=== PATIENT | male | born 1965 | race African-American/Black ===

== ENCOUNTER → 2017-05-01 | Outpatient (CLI) | payer SELFPAY ==
--- NOTE | 2017-05-01 11:36 | Diagnostic Imaging Report ---
INDICATION: Fullness in the left flank region inferior to the scapula as well as numbness in the left arm. Sonographic interrogation of fullness in the left flank was performed. The degree of soft tissue fullness on the left flank is increased when compared with the asymptomatic right flank. However, no discrete fluid collection or hematoma is detected. IMPRESSION: There is some soft tissue fullness in the area of left flank, indeterminate. No fluid collection is seen. Additional evaluation is recommended with CT for better characterization. Dictated by: Dictated on workstation # [id number]
== END ==
LOC: RAD 10:23
PROVIDERS: ATTEND Nurse Practitioner Community Health
DX: R10.9 Unspecified abdominal pain (principal); R20.0 Anesthesia of skin
CPT/HCPCS: 76999

== ENCOUNTER → 2017-05-04 | Outpatient (CLI) | payer SELFPAY ==
[~2017-05-04] MED LIST: IOHEXOL 350 MG/ML 100 ML (OMNIPAQUE 350) VIAL IV ONE; NS 250 ML (IVPB) BAG IV ONE
--- NOTE | 2017-05-04 13:15 | Diagnostic Imaging Report ---
PROCEDURE: CT chest with contrast only. TECHNIQUE: Multiple contiguous axial images were obtained through the chest after administration of intravenous contrast. INDICATION: Fatty lump on the posterolateral aspect of the left chest wall. COMPARISON: Left chest wall ultrasound from 05/01/17. FINDINGS: Lungs and airway: No endoluminal nodule in the trachea. No pulmonary mass or consolidation. Incidental note of a 6 mm elongated nodule along the right minor fissure (image 35, series 2). Pleura: No pleural effusion or pneumothorax. Heart and mediastinum: Visualized thyroid is normal. No supraclavicular or axillary lymphadenopathy. No mediastinal, hilar or juxtaphrenic lymphadenopathy. The heart is normal in size. No pericardial effusion. Normal-caliber thoracic aorta. Upper abdomen: Visualized aspects of the upper abdomen are normal. Musculoskeletal: There is a large fatty mass in the posterolateral aspect of left chest wall which is located deep to the inferior aspect of the anterior serratus muscle and the left latissimus dorsi muscle. The deep margins of the mass conform to the lower lateral ribs. There is no invasion of the ribs or the chest wall. The mass has maximal dimensions of 9.1 x 3.0 x 6.9 cm. No concerning osseous abnormality. IMPRESSION: 1. 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 No soft tissue components to suggest lipoid sarcoma. 2. Incidental note of a 6 mm right middle lobe pulmonary nodule that has imaging features that would favor intrapulmonary lymph node. If patient has no risk factors for smoking, particularly smoking, then no additional followup imaging is required. If patient has risk factors for lung cancer, then a followup CT chest in 12 months is recommended. 3. No intrathoracic lymphadenopathy. Dictated by: Dictated on workstation # [id number]
== END ==
LOC: RAD 12:06
PROVIDERS: ATTEND Nurse Practitioner Community Health
DX: R22.2 Localized swelling, mass and lump, trunk (principal); R91.1 Solitary pulmonary nodule
CPT/HCPCS: 71260

== ENCOUNTER → 2017-05-29 | Outpatient (CLI) | payer SELFPAY ==
--- NOTE | 2017-05-29 13:25 | Diagnostic Imaging Report ---
PROCEDURE: MR imaging cervical spine without contrast. TECHNIQUE: Multiplanar, multisequence MR imaging of the cervical spine was performed without contrast. INDICATION: Neck pain, arm numbness. COMPARISON: No priors. FINDINGS: There is straightening of cervical curvature but no listhesis. Cervical vertebral body heights are maintained and the marrow signal intensity was unremarkable. The cervical spinal cord itself had a normal volume, normal morphology, and normal signal intensity. There is no paravertebral mass, hemorrhage, or fluid collection. The craniocervical relationship, and the C1-C2 level and disc appeared normal. C2-C3: Very slight disc desiccation and slight eccentric bulging posteriorly towards the left minimally effaces the ventral thecal sac but is not felt to result in substantial canal stenosis and the neuroforamina showed no significant narrowing. C3-C4: Osteophyte disc material posteriorly flattens and effaces the ventral thecal sac. There is a sliver of CSF dorsal and ventral to the cord. The midline AP canal diameter is narrowed to measure 7.4 mm. There is a moderate degree of stenosis. Uncovertebral joint spurring and disc material is asymmetric to the left at this level and results in moderate severity of left neuroforaminal stenosis. C4-C5: Osteophyte disc material posteriorly flattens and effaces the ventral thecal sac with a mild degree of spinal canal stenosis. The disc material, the endplate osteophytes, and uncovertebral joint spurring at this level are also asymmetric, greater left than right, with an at least moderate degree of left foraminal narrowing. The right neuroforamen is only mildly stenosed. C5-C6: Posterolateral focal disc protrusion results in a sknrtdmn-mf-umfhli degree of left foraminal stenosis. There is only mild effacement of the ventral thecal sac. No substantial degree of canal narrowing. The right neuroforamen is widely patent. C6-C7: Osteophyte disc material posteriorly effaces and flattens the ventral thecal sac with mild canal stenosis and mild degrees of symmetrical biforaminal narrowing. C7-T1: There is mild asymmetric disc bulge to the left mildly narrowing the left neuroforamen. The right foramen and the spinal canal showed no significant encroachment. The T2-T3 and T3-T4 discs and the sagittal views suggest mild bulging with likely mild biforaminal and mild canal stenosis. These are below the kvnab-kw-lrcv for the axial sequences. IMPRESSION: 1. Multilevel cervical and upper thoracic spondylosis, facet arthrosis, and uncovertebral joint spurring. Osteophyte disc material and endplate hypertrophy is asymmetric, greater left than right, resulting in multilevel substantial degrees of left foraminal stenosis with cyrh-ih-oyvtqgiv multilevel canal stenoses. 2. There was normal alignment. There is no acute osseous pathology and the patient's spinal cord appeared normal. Dictated by: Dictated on workstation # [id number]
== END ==
LOC: RAD 11:46
PROVIDERS: ATTEND Nurse Practitioner
DX: M48.03 Spinal stenosis, cervicothoracic region (principal); S13.101A Dislocation of unspecified cervical vertebrae, initial encounter; M47.812 Spondylosis without myelopathy or radiculopathy, cervical region; M47.814 Spondylosis without myelopathy or radiculopathy, thoracic region
CPT/HCPCS: 72141

== ENCOUNTER 2017-09-09 14:10 | Emergency (ER) | payer SELFPAY ==
[~2017-09-09] VITALS: Ht 180.3 cm; Wt 80.3 kg
[2017-09-09] MEDS ORDERED: ASPIRIN 81 MG CHEW (CHILDREN'S ASA) PO ONE (14:30)
[2017-09-09 14:31] LABS: BASOPHILS % (AUTO) 0 % (0-10); EOSINOPHILS % (AUTO) 0 % (0-10); HEMATOCRIT 43 % (40-54); HEMOGLOBIN 15.5 G/DL (13.3-17.7); LYMPHOCYTES # (AUTO) 1.6 X 10^3 (1.0-4.0); LYMPHOCYTES % (AUTO) 20 % (12-44); MEAN CORPUSCULAR HEMOGLOBIN 31 PG (25-34); MEAN CORPUSCULAR HGB CONC 36 G/DL (32-36); MEAN CORPUSCULAR VOLUME 87 FL (80-99); MEAN PLATELET VOLUME 11.3 FL (7.4-10.4); MONOCYTES # (AUTO) 1.1 X 10^3 (0.0-1.0); MONOCYTES % (AUTO) 14 % (0-12); NEUTROPHILS # (AUTO) 5.2 X 10^3 (1.8-7.8); NEUTROPHILS % (AUTO) 66 % (42-75); PLATELET COUNT 239 10^3/uL (130-400); RED BLOOD COUNT 5.02 10^6/uL (4.35-5.85); RED CELL DISTRIBUTION WIDTH 13.1 % (10.0-14.5); WHITE BLOOD COUNT 7.8 10^3/uL (4.3-11.0)
[2017-09-09 14:43] LABS: INR 1.1 (0.8-1.4); PROTHROMBIN TIME PATIENT 14.1 SEC (12.2-14.7)
--- NOTE | 2017-09-09 14:47 | Diagnostic Imaging Report ---
INDICATION: Chest pain. COMPARISON: None. FINDINGS: Single view of the chest demonstrates clear lungs bilaterally. The heart is normal. There is no pneumothorax. Osseous structures normal. IMPRESSION: Negative chest. Dictated by: Dictated on workstation # [id number]
[2017-09-09 14:50] LABS: ALANINE AMINOTRANSFERASE 24 U/L (0-55); ALBUMIN 3.8 GM/DL (3.2-4.5); ALKALINE PHOSPHATASE 112 U/L (40-136); BILIRUBIN,TOTAL 0.7 MG/DL (0.1-1.0); BUN/CREATININE RATIO 23; CALCIUM 10.2 MG/DL (8.5-10.1); CARBON DIOXIDE 17 MMOL/L (21-32); CHLORIDE 111 MMOL/L (98-107); CREATININE SERUM 1.02 MG/DL (0.60-1.30); GFR ESTIMATED > 60; GLUCOSE 88 MG/DL (70-105); LIPASE 20 U/L (8-78); MAGNESIUM 1.7 MG/DL (1.8-2.4); POTASSIUM 4.3 MMOL/L (3.6-5.0); SODIUM 143 MMOL/L (135-145); TOTAL PROTEIN 6.8 GM/DL (6.4-8.2)
--- NOTE | 2017-09-09 15:00 | ED Chest Pain ---
General Chief Complaint: Chest Pain Stated Complaint: CHEST PAIN, WEAK, KIDNEY PROBLEMS,SOB Nursing Triage Note: TO ROOM C/O CHEST PAIN SINCE YESTERDAY WAS SEEN AT THE [facility]ICAL [facility] YESTERDAY FOR. Nursing Sepsis Screen: No Definite Risk Source: patient Exam Limitations: no limitations (MÓNICA SANZ MD) History of Present Illness Date Seen by Provider: Sep 09, 2017 Time Seen by Provider: 14:20 Initial Comments Here with report of chest pain since yesterday. He was seen at his primary health clinic yesterday for the same. The do not prescribe anything for pain. Also notes that he has swelling in his throat that is not sure about. Has had recent workup with MRI and CT scan. MRI was of the C-spine and CT scans of the chest. 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 Reports that his hands weight loss over the last several weeks that may approached 20 pounds. Overall not feeling well. Denies throat pain but does feel the fullness. This seems to be waxing and waning. Denies nausea or vomiting. Timing/Duration: changing over time, 1 day Severity/Quality: moderate, aching Location: central Radiation: no radiation Prior CP/Workup: no prior cardiac workup ASA po MASTER PRINTER: No NTG SL MASTER PRINTER: No Associated Symptoms: No abdominal pain, No back pain; fatigue; No fever/chills , No nausea/vomiting, No shortness of breath; weakness (MÓNICA SANZ MD) Allergies and Home Medications Allergies Coded Allergies: No Known Drug Allergies (Unverified , 09/09/17) Home Medications No Active Prescriptions or Reported Meds Patient Home Medication List Home Medication List Reviewed: Yes (MÓNICA SANZ MD) Home Medication List Reviewed: Yes (GWEN WHALEY) Review of Systems Constitutional: see HPI, weakness EENTM: See HPI; No Mouth Pain, No Mouth Swelling, No Nose Congestion, No Throat Pain; Throat Swelling Respiratory: Denies Cough, Denies SOA at Rest Cardiovascular: Chest Pain; Denies Irregular Heart Rate, Denies Palpitations Gastrointestinal: No Symptoms Reported Genitourinary: No Symptoms Reported Musculoskeletal: see HPI, back pain, muscle pain, neck pain Skin: no symptoms reported Psychiatric/Neurological: See HPI, Weakness Endocrine: No Symptoms Reported (MÓNICA SANZ MD) All Other Systems Reviewed Negative Unless Noted: Yes (MÓNICA SANZ MD) Past Sdtvgqo-Lnerog-Ezlkwt Hx Past Med/Social Hx: Reviewed Nursing Past Med/Soc Hx (MÓNICA SANZ MD) Patient Social History Alcohol Use: Denies Use Recreational Drug Use: No Smoking Status: Current Everyday Smoker Recent Foreign Travel: No Contact w/Someone Who Travel: No Recent Infectious Disease Expo: No (MÓNICA SANZ MD) Past Medical History Surgeries: No Respiratory: No Cardiac: Yes Hypertension Neurological: No Genitourinary: No Gastrointestinal: No Musculoskeletal: No Endocrine: No HEENT: No Integumentary: No (MÓNICA SANZ MD) Family Medical History Reviewed Nursing Family Hx (MÓNICA SANZ MD) Physical Exam Vital Signs Vital Signs - First Documented 09/09/17 14:30 Temp 98.0 Pulse 112 Resp 18 B/P (MAP) 148/96 (113) Pulse Ox 98 O2 Delivery Room Air (GWEN WHALEY) Vital Signs Capillary Refill : Less Than 3 Seconds (MÓNICA SANZ MD) General Appearance: No Apparent Distress, WD/WN HEENT: PERRL/EOMI, Pharyngeal Erythema; No Tonsillar Exudate; Tonsillar Enlargement Neck: Full Range of Motion, Lymphadenopathy (L), Lymphadenopathy (R) Respiratory: Lungs Clear, Normal Breath Sounds Cardiovascular: No Murmur, Tachycardia Gastrointestinal: Non Tender, Soft Extremity: Normal Range of Motion, Non Tender Neurologic/Psychiatric: Alert, Oriented x3 Skin: Normal Color, Warm/Dry (MÓNICA SANZ MD) Progress/Results/Core Measures Results/Orders Lab Results Laboratory Tests Test 09/09/17 14:24 09/09/17 14:48 09/09/17 17:55 Range/Units White Blood Count 7.8 4.3-11.0 10^3/uL Red Blood Count 5.02 4.35-5.85 10^6/uL Hemoglobin 15.5 13.3-17.7 G/DL Hematocrit 43 40-54 % Mean Corpuscular Volume 87 80-99 FL Mean Corpuscular Hemoglobin 31 25-34 PG Mean Corpuscular Hemoglobin Concent 36 32-36 G/DL Red Cell Distribution Width 13.1 10.0-14.5 % Platelet Count 239 130-400 10^3/uL Mean Platelet Volume 11.3 H 7.4-10.4 FL Neutrophils (%) (Auto) 66 42-75 % Lymphocytes (%) (Auto) 20 12-44 % Monocytes (%) (Auto) 14 H 0-12 % Eosinophils (%) (Auto) 0 0-10 % Basophils (%) (Auto) 0 0-10 % Neutrophils # (Auto) 5.2 1.8-7.8 X 10^3 Lymphocytes # (Auto) 1.6 1.0-4.0 X 10^3 Monocytes # (Auto) 1.1 H 0.0-1.0 X 10^3 Eosinophils # (Auto) 0.0 0.0-0.3 10^3/uL Basophils # (Auto) 0.0 0.0-0.1 10^3/uL Prothrombin Time 14.1 12.2-14.7 SEC INR Comment 1.1 0.8-1.4 Activated Partial Thromboplast Time 35 24-35 SEC D-Dimer 0.55 H 0.00-0.49 UG/ML Sodium Level 143 135-145 MMOL/L Potassium Level 4.3 3.6-5.0 MMOL/L Chloride Level 111 H 98-107 MMOL/L Carbon Dioxide Level 17 L 21-32 MMOL/L Anion Gap 15 H 5-14 MMOL/L Blood Urea Nitrogen 23 H 7-18 MG/DL Creatinine 1.02 0.60-1.30 MG/DL Estimat Glomerular Filtration Rate > 60 BUN/Creatinine Ratio 23 Glucose Level 88 70-105 MG/DL Calcium Level 10.2 H 8.5-10.1 MG/DL Magnesium Level 1.7 L 1.8-2.4 MG/DL Total Bilirubin 0.7 0.1-1.0 MG/DL Aspartate Amino Transf (AST/SGOT) 28 5-34 U/L Alanine Aminotransferase (ALT/SGPT) 24 0-55 U/L Alkaline Phosphatase 112 40-136 U/L Total Creatine Kinase 65 30-200 U/L Myoglobin 74.0 10.0-92.0 NG/ML Troponin I < 0.30 <0.30 NG/ML Total Protein 6.8 6.4-8.2 GM/DL Albumin 3.8 3.2-4.5 GM/DL Lipase 20 8-78 U/L Monoscreen NEGATIVE NEGATIVE Group A Streptococcus Screen NEGATIVE NEGATIVE Urine Color YELLOW Urine Clarity CLEAR Urine pH 5 5-9 Urine Specific Purcell 1.010 L 1.016-1.022 Urine Protein 1+ H NEGATIVE Urine Glucose (UA) NEGATIVE NEGATIVE Urine Ketones 2+ H NEGATIVE Urine Nitrite NEGATIVE NEGATIVE Urine Bilirubin NEGATIVE NEGATIVE Urine Urobilinogen 4 H NORMAL MG/DL Urine Leukocyte Esterase NEGATIVE NEGATIVE Urine RBC (Auto) 2+ H NEGATIVE Urine RBC 0-2 /HPF Urine WBC 0-2 /HPF Urine Squamous Epithelial Cells 2-5 /HPF Urine Renal Epithelial Cells NONE /HPF Urine Crystals NONE /LPF Urine Bacteria NEGATIVE /HPF Urine Casts PRESENT /LPF Urine Hyaline Casts 0-2 H /LPF Urine White Blood Cell Casts RARE H /LPF Urine Mucus NEGATIVE /LPF Urine Culture Indicated NO (GWEN WHALEY) My Orders Orders - GWEN WHALEY Creatine Kinase (09/09/17 19:04) (GWEN WHALEY) Medications Given in ED Current Medications Medications Dose Ordered Sig/Allison Route Start Time Stop Time Status Last Admin Dose Admin Aspirin 324 mg ONCE ONCE PO 09/09/17 14:30 09/09/17 14:31 DC 09/09/17 14:44 324 MG Iohexol 100 ml ONCE ONCE IV 09/09/17 16:00 09/09/17 16:42 DC 09/09/17 16:12 100 ML Sodium Chloride 100 ml ONCE ONCE IV 09/09/17 16:00 09/09/17 16:42 DC 09/09/17 16:12 100 ML Sodium Chloride 1,000 ml @ 0 mls/hr Q0M ONCE IV 09/09/17 18:23 09/09/17 18:26 DC 09/09/17 19:09 1,000 MLS/HR (GWEN WHALEY) Vital Signs/I&O 09/09/17 14:30 Temp 98.0 Pulse 112 Resp 18 B/P (MAP) 148/96 (113) Pulse Ox 98 O2 Delivery Room Air (GWEN WHALEY) Blood Pressure Mean: 113 Progress Progress Note : Progress Note Seen and evaluated. IV, labs, EKG and chest x-ray ordered. ASA 324 mg by mouth ordered. Normal saline 1 L bolus. Monitor patient (MÓNICA SAZN MD) Progress Note : Time: 18:38 Progress Note Assumed care of the patient from Dr. Sanz. Agree with his examination and history. Patient reports initially for some chest pain on the left chest wall side. Cardiac workup unremarkable. Pains been going on for over 24 hours. Because of a history of untreated hypertension. Does not follow anywhere. Patient is also having some neck and back pain, nebulous and may be related to it start 2 weeks ago when he had a 70 pound box dropped on his head. He has responded well to some pain medications given in the ER. Examination did reveal enlarged tonsils. Rapid strep was negative and a mono spot is pending. There is been CT imaging of his chest abdomen and pelvis in relation to a history of a tumor on his back that appeared to be a lipoma alongside his heaviness back pain and 20 pound weight loss over the past couple months. There does not appear to be any malignancy on imaging. Because of his new history of a box falling on his head and having some neck and back pain a CT of his head and C- spine has been ordered. If this is okay then we will consider setting up the patient on some amoxicillin for his tonsils and allowing him to go outpatient. Patient still having some pain despite the earlier morphine given to him. We've ordered ketorolac but is not received yet. We'll also give him a liter fluids to henny the IV contrast and because he appears to be clinically dry. (GWEN WHALEY) Initial ECG Impression Date: Sep 09, 2017 Initial ECG Impression Time: 14:15 Initial ECG Rate: 105 Initial ECG Rhythm: S.Tach Comment Sinus tachycardia with left atrial abdomen rounded. LVH noted. No evidence of ST elevation ME. Leftward axis. No previous available for comparison. Interpreted by me. (MÓNICA SANZ MD) Diagnostic Imaging Diagonstic Imaging: Xray Plain Films/CT/US/NM/MRI: chest Comments NAME: CATALINA STERN [facility] REC#: [id number] PT STATUS: REG ER : 1965 PHYSICIAN: MÓNICA SANZ MD ADMIT DATE: 09/09/17/ER Draft Date of Exam:09/09/17 CHEST 1 VIEW, AP/PA ONLY INDICATION: Chest pain. COMPARISON: None. FINDINGS: Single view of the chest demonstrates clear lungs bilaterally. The heart is normal. There is no pneumothorax. Osseous structures normal. IMPRESSION: Negative chest. Dictated on workstation # [id number] Dict: 09/09/17 1443 Trans: 09/09/17 1446 [id number] Interpreted by: DONNIE DELANEY Electronically signed by: (MÓNICA SANZ MD) Diagonstic Imaging: CT Plain Films/CT/US/NM/MRI: chest, abdomen, pelvis Comments NAME: CATALINA STERN [facility] REC#: [id number] PHYSICIAN: MÓNICA SANZ MD CC: DONNIE DELANEY; MÓNICA SANZ MD Page 2 of 2 RADIOLOGY REPORT VIA [facility]. [place], [place] CC: DONNIE DELANEY; MÓNICA SAZN MD Page 1 of 2 RADIOLOGY REPORT NAME: CATALINA STERN [facility] REC#: [id number] PT STATUS: REG ER : 1965 PHYSICIAN: MÓNICA SANZ MD ADMIT DATE: 09/09/17/ER Signed Date of Exam: 09/09/17 CT CHEST/ABDOMEN/PELVIS W PROCEDURE: CT chest, abdomen, and pelvis with contrast. TECHNIQUE: Multiple contiguous axial images were obtained through the chest, abdomen, and pelvis after the administration of intravenous contrast. INDICATION: Abdominal and chest pain. COMPARISON: CT chest from 05/04/2017. CT CHEST: The heart and mediastinal structures are normal. The central airways are intact. There is no lymphadenopathy or pleural or pericardial effusion. There is a stable nodule in the lateral segment of the right middle lobe. This measures approximately 6 mm and is unchanged suggesting benignity. The left lung is clear. There is a stable lipoma along the left posterior lateral chest wall. Osseous structures are age-appropriate. IMPRESSION: 1. No acute cardiopulmonary findings. 2. Stable right middle lobe lung nodule. 3. Stable left chest wall lipoma. CT ABDOMEN/PELVIS: Liver, gallbladder, spleen, pancreas, adrenal glands, kidneys, vascular structures and bowel are normal. There is no free air or free fluid. No lymphadenopathy is identified. Distal ureters and urinary bladder are normal. There is no inflammatory process. No hernia is seen. Osseous structures normal. IMPRESSION: Negative CT abdomen and pelvis. Dictated by: Dictated on workstation # [id number] Dict: 09/09/17 1629 Trans: 09/09/171707 Interpreted by: DONNIE DELANEY Electronically signed by: DONNIE DELANEY 09/09/171707 Reviewed: Reviewed by Me Diagonstic Imaging: CT Plain Films/CT/US/NM/MRI: c-spine, head (w/o contrast) Comments VIA [facility]. [place], [place] NAME: CATALINA STERN [facility] REC#: [id number] PT STATUS: REG ER : 1965 PHYSICIAN: MÓNICA SANZ MD ADMIT DATE: 09/09/17/ER Draft Date of Exam:09/09/17 CT HEAD/CERVICAL SPINE WO INDICATION: Upper neck pain for the last three weeks with no known trauma. Patient had prior CT of the chest, abdomen and pelvis earlier today with contrast. EXAMINATION: CT brain and CT cervical spine, 09/09/2017. CT BRAIN: There is diffuse linear hyperdensity along the dura involving the falx and tentorium. Hyperdensity within the vessels also noted all consistent with the recent administration of contrast. This markedly limits evaluation for acute hemorrhage. No definite acute hemorrhage is seen. No mass, mass effect or midline shift is noted. There is no hydrocephalus. No acute infarct appreciated. A retention polyp and/or cyst noted in the right maxillary sinus. No acute sinus disease is seen. Visualized paranasal sinuses demonstrate partial opacification on the right, age indeterminate, correlate clinically. IMPRESSION: 1. No acute intracranial process; however, examination is limited for acute hemorrhage due to the contrast described above. 2. Other chronic findings as noted above. CT CERVICAL SPINE: Correlation made to previous MRI of the [place] spine from 05/29/2017. There is normal height and alignment of the vertebral bodies. Some loss of the normal lordosis is noted which could be positional or due to muscle spasm. The lung apices are clear. There is intervertebral disc space narrowing with anterior and posterior spurring at C6-C7. There is a Schmorl's node along the superior endplate at C7 noted. There is a likely urges complex at this level as well causing at least mild central narrowing. No definite significant central stenosis seen at any level. The prevertebral soft tissues there is trace atherosclerotic disease. IMPRESSION: 1. Straightening of the normal curvature, as noted above. No fracture is appreciated. 2. Degenerative findings most marked at C6-C7, as discussed above. Dictated on workstation # [id number] Dict: 09/09/171854 Trans: 09/09/171945 [facility] [id number] Interpreted by: KAYODE DUQUE MD Electronically signed by: Reviewed: Reviewed by Me (GWEN WHALEY) Departure Impression Primary Impression: Chest pain Qualified Codes: R07.9 - Chest pain, unspecified Additional Impressions: Lipoma of back Neck pain Acute bacterial tonsillitis Disposition: HOME, SELF-CARE Condition: Stable Departure-Patient Inst. Decision time for Depature: 20:08 (GWEN WHALEY) Referrals: [facility] [place] ([place]) Primary Care Physician INES ROBINS (Family) Primary Care Physician Patient Instructions: Lipoma , Neck Pain Add. 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 For your pain you can use Tylenol 1000 mg every 8 hours in addition to either ibuprofen 800 mg every 8 hours or Naprosyn 2 capsules twice a day. Naprosyn and ibuprofen works best if you take it on a scheduled basis for 2-4 weeks. You can also use ice alternated with heat and muscle rub such as icy hot or Biofreeze. If you have breakthrough pain it cannot tolerate been you can take one tablet of the hydrocodone every 6 hours as needed for pain. Follow-up with your primary care provider in the next 1-2 weeks. All discharge instructions reviewed with patient and/or family. Voiced understanding. Scripts Naproxen (Naprosyn) 500 Mg Tablet 500 MG PO BID for 30 Days, #60 TAB 0 Refills Prov: GWEN WHALEY 09/09/17 Hydrocodone Bit/Acetaminophen (Hydrocodone/Acetaminophen 5/325mg Tablet) 1 Tab Tab 1 EACH PO Q6H PRN for BREAKTHROUGH PAIN, #18 TAB 0 Refills Prov: GWEN WHALEY 09/09/17 Amoxicillin (Amoxicillin) 500 Mg Capsule 1000 MG PO TID for 10 Days, #60 CAP 0 Refills Prov: GWEN WHALEY 09/09/17 Copy Copies To 1: CARMEN GRAF TIMOTHY D MD Sep 09, 2017 15:00 GWEN WHALEY Sep 09, 2017 18:43
[2017-09-09] MEDS ORDERED: morphine INJ 10 MG/ML 1ML (SYR OR VIAL) IVP STA (15:53)
[2017-09-09] MEDS ORDERED: NS 100 ML (IVPB) BAG IV ONE (16:00)
[2017-09-09] MEDS ORDERED: IOHEXOL 350 MG/ML 100 ML (OMNIPAQUE 350) VIAL IV ONE (16:00)
--- NOTE | 2017-09-09 17:00 | Diagnostic Imaging Report ---
PROCEDURE: CT chest, abdomen, and pelvis with contrast. TECHNIQUE: Multiple contiguous axial images were obtained through the chest, abdomen, and pelvis after the administration of intravenous contrast. INDICATION: Abdominal and chest pain. COMPARISON: CT chest from 05/04/2017. CT CHEST: The heart and mediastinal structures are normal. The central airways are intact. There is no lymphadenopathy or pleural or pericardial effusion. There is a stable nodule in the lateral segment of the right middle lobe. This measures approximately 6 mm and is unchanged suggesting benignity. The left lung is clear. There is a stable lipoma along the left posterior lateral chest wall. Osseous structures are age-appropriate. IMPRESSION: 1. No acute cardiopulmonary findings. 2. Stable right middle lobe lung nodule. 3. Stable left chest wall lipoma. CT ABDOMEN/PELVIS: Liver, gallbladder, spleen, pancreas, adrenal glands, kidneys, vascular structures and bowel are normal. There is no free air or free fluid. No lymphadenopathy is identified. Distal ureters and urinary bladder are normal. There is no inflammatory process. No hernia is seen. Osseous structures normal. IMPRESSION: Negative CT abdomen and pelvis. Dictated by: Dictated on workstation # [id number]
[2017-09-09 18:14] LABS: BILIRUBIN,URINE NEGATIVE (NEGATIVE); CLARITY,URINE CLEAR; COLOR,URINE YELLOW; GLUCOSE, URINE (UA) NEGATIVE (NEGATIVE); KETONES,URINE 2+ (NEGATIVE); LEUKOCYTE ESTERASE ,URINE NEGATIVE (NEGATIVE); NITRITE,URINE NEGATIVE (NEGATIVE); PH,URINE 5 (5-9); PROTEIN,URINE 1+ (NEGATIVE); UROBILINOGEN,URINE 4 MG/DL (NORMAL)
[2017-09-09] MEDS ORDERED: KETOROLAC 30 MG/ML VIAL IVP STA (18:23)
[2017-09-09] MEDS ORDERED: NS IV 1000 ML 1,000 ML IV ONE (18:23)
[2017-09-09 18:29] LABS: BACTERIA,URINE NEGATIVE /HPF; RBC,URINE 0-2 /HPF; WBC,URINE 0-2 /HPF
[2017-09-09 18:30] LABS: HYALINE CASTS, URINE 0-2 /LPF; WHITE BLOOD CELL CASTS, URINE RARE /LPF
--- NOTE | 2017-09-09 19:46 | Diagnostic Imaging Report ---
INDICATION: Upper neck pain for the last three weeks with no known trauma. Patient had prior CT of the chest, abdomen and pelvis earlier today with contrast. EXAMINATION: CT brain and CT cervical spine, 09/09/2017. CT BRAIN: There is diffuse linear hyperdensity along the dura involving the falx and tentorium. Hyperdensity within the vessels also noted all consistent with the recent administration of contrast. This markedly limits evaluation for acute hemorrhage. No definite acute hemorrhage is seen. No mass, mass effect or midline shift is noted. There is no hydrocephalus. No acute infarct appreciated. A retention polyp and/or cyst noted in the right maxillary sinus. No acute sinus disease is seen. Visualized paranasal sinuses demonstrate partial opacification on the right, age indeterminate, correlate clinically. IMPRESSION: 1. No acute intracranial process; however, examination is limited for acute hemorrhage due to the contrast described above. 2. Other chronic findings as noted above. CT CERVICAL SPINE: Correlation made to previous [facility] from 05/29/2017. There is normal height and alignment of the vertebral bodies. Some loss of the normal lordosis is noted which could be positional or due to muscle spasm. The lung apices are clear. There is intervertebral disc space narrowing with anterior and posterior spurring at C6-C7. There is a Schmorl's node along the superior endplate at C7 noted. There is a likely urges complex at this level as well causing at least mild central narrowing. No definite significant central stenosis seen at any level. The prevertebral soft tissues there is trace atherosclerotic disease. IMPRESSION: 1. Straightening of the normal curvature, as noted above. No fracture is appreciated. 2. Degenerative findings most marked at C6-C7, as discussed above. Dictated by: Dictated on workstation # [id number]
[2017-09-09] MEDS ORDERED: AMOX500C2 PO (20:11)
[2017-09-09] MEDS ORDERED: NAPR-1071 PO (20:11)
[2017-09-09] MEDS ORDERED: ACHD5005 PO (20:11)
[2017-09-09] MEDS ORDERED: methylPREDNISolone 80 MG/ML (DEPO MEDROL) VIAL IM ONE (20:30)
[2017-09-09 20:36] VITALS: BP 148/96
== END 2017-09-09 20:36 | disposition home or self-care (01) ==
LOC: EDUNIT# 14:10 → ER 14:13
DX: R07.9 Chest pain, unspecified (principal); D17.79 Benign lipomatous neoplasm of other sites; M54.2 Cervicalgia; J03.80 Acute tonsillitis due to other specified organisms; B96.89 Other specified bacterial agents as the cause of diseases classified elsewhere; I10 Essential (primary) hypertension; F17.200 Nicotine dependence, unspecified, uncomplicated
CPT/HCPCS: 36415; 70450; 71045; 71260; 72125; 74177; 80053; 81000; 82550; 83690; 83735; 83874; 84484; 85025; 85379; 85610; 85730; 86308; 87430; 93005; 93041; 96361; 96372; 96374; 96375

== ENCOUNTER 2017-09-23 16:49 | Emergency (ER) | payer SELFPAY ==
[~2017-09-23] VITALS: Ht 180.3 cm; Wt 77.6 kg
[~2017-09-23 16:49] MED LIST changes: +ACHD5005 PO; +AMOX500C2 PO; -IOHEXOL 350 MG/ML 100 ML (OMNIPAQUE 350) VIAL IV ONE; +NAPR-1071 PO; -NS 250 ML (IVPB) BAG IV ONE
[2017-09-23] MEDS ORDERED: KETOROLAC 60 MG/2 ML VIAL IM STA (17:32)
[2017-09-23] MEDS ORDERED: diphenhydrAMINE 50 MG/ML INJ (BENADRYL) IM STA (17:32)
[2017-09-23] MEDS ORDERED: ORPHENADRINE 60 MG/2 ML (NORFLEX) AMP IM STA (17:32)
[2017-09-23] MEDS ORDERED: METH500T PO (17:36)
[2017-09-23] MEDS ORDERED: METH4TAB PO (17:36)
--- NOTE | 2017-09-23 17:37 | ED Neck-Back Pain/Injury ---
General Chief Complaint: Head/Cervical Problems Stated Complaint: NECK/BACK PAIN,LEGS WEAK Nursing Triage Note: PT CO OF NECK PAIN AND LOW BACK PAIN FOR PAST 3-4 MONTHS. STATES IS SCHEDULED FOR MRI ON MONDAY Nursing Sepsis Screen: No Definite Risk Source of Information: Patient History of Present Illness Date Seen by Provider: Sep 23, 2017 Time Seen by Provider: 17:15 Initial Comments PT ARRIVES VIA POV C/O NECK AND BACK PAIN FOR 4 MONTHS PT HAS BEEN TO ER AND SEEN ROSA ROBINS SEVERAL TIMES FOR THIS PROBLEM NO INJURY PRIOR TO ONSET OF PAIN, BUT STATES ABOUT A MONTH AGO, HE HAD A 65 LB BOX FALL ON HIS NECK AT WORK--HAS BEEN SEEN SINCE THEN AND HAS HAD CT SCAN OF AREA SINCE THEN HAD MRI OF C-SPINE 05/29/17--MULTILEVEL DEGENERATIVE CHANGES, WITH VARYING DEGREES OF CANAL AND FORAMINAL STENOSIS HAD CT HEAD/CERVICAL SPINE AND CT CHEST/ABDOMEN/PELVIS 09/09/17 DURING AN ER VISIT--NO ACUTE PROCESS, WITH DIFFUSE DEGENERATIVE CHANGES, ESPECIALLY C6-7 PT IS SCHEDULED TO HAVE MRI OF HIS LOW BACK ON MONDAY HAS FOLLOW UP WITH ROSA ROBINS 09/06/17 NO RADIATION OF PAIN NO PARESTHESIAS OR MOTOR DEFICITS NO PROBLEMS WITH BOWEL/ BLADDER FUNCTION Other Comments PCP: SCOTT-K, ROSA ROBINS Allergies and Home Medications Allergies Coded Allergies: No Known Drug Allergies (Unverified , 09/09/17) Home Medications Hydrocodone Bit/Acetaminophen 1 Tab Tab, 1 EACH PO Q6H PRN for BREAKTHROUGH PAIN Prescribed by: GWEN WHALEY on 09/09/172010 Methocarbamol 500 Mg Tablet, 500 MG PO QID Prescribed by: COSMO CORDERO on 09/23/17 173 Methylprednisolone 4 Mg Tab.ds.pk, 4 MG PO UD Prescribed by: COSMO CORDERO on 09/23/17 173 Naproxen 500 Mg Tablet, 500 MG PO BID Prescribed by: GWEN WHALEY on 09/09/172010 Patient Home Medication List Home Medication List Reviewed: Yes Constitutional: no symptoms reported, weight loss (30 LBS IN LAST 2-3 MONTHS) Respiratory: no symptoms reported Cardiovascular: no symptoms reported Gastrointestinal: no symptoms reported Genitourinary: no symptoms reported Musculoskeletal: see HPI, back pain, neck pain Skin: no symptoms reported Psychiatric/Neurological: No Symptoms Reported; Denies Numbness, Denies Paresthesia Past Kgmqdtk-Aqnata-Oalzuu Hx Patient Social History Alcohol Use: Occasionally Uses (HISTORY OF HEAVY USE, NOW ONLY DRINKS OCCASINALLY) Recreational Drug Use: No Smoking Status: Current Everyday Smoker (1 1/2 PPD) Type Used: Cigarettes Recent Foreign Travel: No Contact w/Someone Who Travel: No Recent Infectious Disease Expo: No Recent Hopitalizations: No Physical Abuse: No Sexual Abuse: No Past Medical History Surgeries: No Respiratory: No Cardiac: Yes Hypertension Neurological: No Genitourinary: No Gastrointestinal: No Musculoskeletal: Yes (CHRONIC NECK PAIN ) Degenerate Disk Disease, Chronic Back Pain Endocrine: No HEENT: No Cancer: No Psychosocial: No Nursing Suicide Risk Score: 0 Integumentary: No Blood Disorders: No Physical Exam Vital Signs Vital Signs - First Documented 09/23/17 17:00 Temp 97.5 Pulse 108 Resp 18 B/P (MAP) 134/93 (107) Pulse Ox 98 Capillary Refill : Less Than 3 Seconds Height, Weight, BMI Height: 5'11.00" Weight: 171lbs. oz. 77.192200cy; BMI Method:Stated General Appearance: No Apparent Distress, Thin, Other (WALKS UPRIGHT WITHOUT DIFFICULTY, CHANGES POSITIONS SLOWLY) HEENT: Other (POOR DENTITION) Neck: Full Range of Motion, Non Tender, Supple Cardiovascular: Regular Rate, Rhythm, No Edema, No JVD, No Murmur, Normal Peripheral Pulses Respiratory: Chest Non Tender, Normal Breath Sounds, No Accessory Muscle Use, No Respiratory Distress Peripheral Pulses: 2+ Dorsalis Pedis (R), 2+ Left Dors-Pedis (L) Gastrointestinal: Normal Bowel Sounds, No Organomegaly, Non Tender, Soft Back: No CVA Tenderness, No Vertebral Tenderness, Other (NO TENDERNESS TO PALPATION, BUT STATES HE HAS PAIN WITH MOVEMENT OF NECK AND BACK. DTR'S INTACT. 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 II- XII Norm as Tested, Other (FLAT AFFECT) Skin: Normal Color, Warm/Dry Progress/Results/Core Measures Results/Orders My Orders Orders - COSMO CORDERO DO Diphenhydramine Injection (Benadryl Inje (7/14/18 17:32) Ketorolac Injection (Toradol Injection) (09/23/17 17:32) Orphenadrine Injection (Norflex Injectio (09/23/17 17:32) Vital Signs/I&O 09/23/17 09/23/17 17:00 17:46 Temp 97.5 Pulse 108 88 Resp 18 18 B/P (MAP) 134/93 (107) 134/93 (107) Pulse Ox 98 98 Blood Pressure Mean: 107 Departure Impression Primary Impression: Chronic neck and back pain Disposition: HOME, SELF-CARE Condition: Stable Departure-Patient Inst. Referrals: [facility] (PCP) Primary Care Physician INES ROBINS (Family) Primary Care Physician Patient Instructions: CHRONIC PAIN, Chronic Neck Pain (DC), Chronic Pain (DC), Low Back Pain (DC) Add. Discharge Instructions: STOP NAPROXEN AND FLEXERIL ALTERNATE ICE AND HEAT TO SORE AREAS AT 20 MINUTE INTERVALS ACTIVITIES TOLERATED FOLLOW UP FOR MRI NEXT WEEK SCHEDULED AND FOLLOW UP WITH [facility] NEXT WEEK FOR FURTHER CARE All discharge instructions reviewed with patient and/or family. Voiced understanding. Scripts Methocarbamol (Robaxin) 500 Mg Tablet 500 MG PO QID for Muscle Spasms, #20 TAB Prov: COSMO CORDERO DO 09/23/17 Methylprednisolone (Medrol) 4 Mg Tab.ds.pk 4 MG PO UD, #1 PKG Prov: COSMO CORDERO DO 09/23/17 COSMO CORDERO DO Sep 23, 2017 17:37
[2017-09-23 17:46] VITALS: BP 134/93
--- OUTSIDE RECORDS SUMMARY | 2017-09-24 23:29 | XMS REPORT ---
Author Author INES ROBINS Organization [facility] Address [address] [place] [address] Care Team Providers Care Manager Of Network Name Role Phone INES ROBINS Unavailable PROBLEMS Type Condition ICD9-CM Code [id number] Code Onset Dates Condition Status SNOMED Code Problem Hyperthyroidism E05.90 Active 66276069 Problem Other chronic pain G89.29 Active 18515733 Problem Hypertension, benign I10 Active 66789640 ALLERGIES No Information ENCOUNTERS Encounter Location Date Diagnosis [place] [address] [address] Sep, Hyperthyroidism E05.90 [facility] [address] [place] [address] Aug, Hypertension, benign I10 ; Cervicalgia M54.2 ; Low back pain M54.5 ; Other chronic pain G89.29 and Family history of diabetes mellitus Z83.3 [facility] [address] [place] [id number] [place] [address] Aug, [facility] [address] [place] [id number] [place] [address] Jun, 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 [id number] [place] [id number] Apr, Flank pain R10.9 IMMUNIZATIONS No Known Immunizations SOCIAL HISTORY Never Assessed REASON FOR VISIT ultrasound results. PLAN OF CARE VITAL SIGNS MEDICATIONS Unknown Medications RESULTS No Results PROCEDURES No Known procedures INSTRUCTIONS MEDICATIONS ADMINISTERED No Known Medications MEDICAL (GENERAL) HISTORY Type Description Date Medical History HTN Hospitalization History pneumonia 2015
--- OUTSIDE RECORDS SUMMARY | 2017-09-24 23:30 | XMS REPORT ---
Author Author INES ROBINS Organization [facility] Address [address] [place] [address] Care Team Providers Care Terminal Block Assembler Name Role Phone INES ROBINS Unavailable PROBLEMS Type Condition ICD9-CM Code [id number] Code Onset Dates Condition Status SNOMED Code Problem Hyperthyroidism E05.90 Active 29288243 Problem Other chronic pain G89.29 Active 19589764 Problem Hypertension, benign I10 Active 70793703 ALLERGIES No Known Allergies ENCOUNTERS Encounter Location Date Diagnosis [place] [address] [place] [id number] [place] [address] Sep, Hyperthyroidism E05.90 [facility] [address] [address] Aug, Hypertension, benign I10 ; Cervicalgia M54.2 ; Low back pain M54.5 ; Other chronic pain G89.29 and Family history of diabetes mellitus Z83.3 [facility] WALK IN [facility] [address] [place] [id number] [place] [address] Aug, [facility] [address] [place] [id number] [place] [address] Jun, 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 and Left cervical radiculopathy M54.12 [facility] [address] [place] [id number] [place] [address] Jun, [place] [address] [address] 15 May, 2017 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 [facility] [address] [place] [id number] [place] [address] Apr, Left flank mass R19.00 [facility] [address] [place] [id number] [address] Apr, Strain of latissimus dorsi muscle, subsequent encounter S29.012D [facility] [address] [facility] [id number] [place] [address] Apr, Flank pain R10.9 IMMUNIZATIONS No Known Immunizations SOCIAL HISTORY Never Assessed REASON FOR VISIT Establish Care- SOHA Fiore PLAN OF CARE VITAL SIGNS Height 72 in 2017-04-28 Weight 195 lbs 2017-04-28 Temperature 98.7 degrees Fahrenheit 2017-04-28 Heart Rate 64 bpm 2017-04-28 BMI 26.44 kg/m2 2017-04-28 Blood pressure systolic 156 mmHg 2017-04-28 Blood pressure diastolic 98 mmHg 2017-04-28 MEDICATIONS Medication Instructions Dosage Frequency Start Date End Date Duration Status Cyclobenzaprine HCl 10 mg Orally 2 times a day 1 tablet as needed 12h Apr, Active PredniSONE 20 mg Orally Once a day 2 tablets 24h Apr, Apr, 05 days Active Diclofenac Sodium 75 MG Orally Twice a day 1 tablet with food or milk 12h Apr, Jun, 30 day(s) Active RESULTS No Results PROCEDURES No Known procedures INSTRUCTIONS MEDICATIONS ADMINISTERED No Known Medications MEDICAL (GENERAL) HISTORY Type Description Date Medical History HTN Hospitalization History pneumonia 2015
--- OUTSIDE RECORDS SUMMARY | 2017-09-24 23:32 | XMS REPORT ---
Author Author INES ROBINS Organization [facility] Address [address] [place] [address] Care Team Providers Care Field Tax Auditor Name Role Phone INES ROBINS Unavailable PROBLEMS Type Condition ICD9-CM Code [id number] Code Onset Dates Condition Status SNOMED Code Problem Hyperthyroidism E05.90 Active 98771173 Problem Other chronic pain G89.29 Active 55626069 Problem Hypertension, benign I10 Active 69320421 ALLERGIES No Known Allergies ENCOUNTERS Encounter Location Date Diagnosis [place] [address] [place] [id number] [place] [address] Sep, Hyperthyroidism E05.90 [facility] [address] [address] Aug, Hypertension, benign I10 ; Cervicalgia M54.2 ; Low back pain M54.5 ; Other chronic pain G89.29 and Family history of diabetes mellitus Z83.3 [facility] WALK IN [facility] [address] [place] [id number] [place] [address] Aug, [facility] [address] [place] [id number] [place] [address] Jun, 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 and Left cervical radiculopathy M54.12 [facility] [address] [place] [id number] [place] [address] Jun, [place] [address] [address] May, 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 [facility] [address] [place] [id number] [place] [address] Apr, Left flank mass R19.00 [facility] [address] [place] [id number] [place] [address] Apr, Strain of latissimus dorsi muscle, subsequent encounter S29.012D [facility] [address] [facility] [id number] [place] [address] Apr, Flank pain R10.9 IMMUNIZATIONS No Known Immunizations SOCIAL HISTORY Never Assessed REASON FOR VISIT arm pain (acute) left arm pain and muscle on left upper back and side. Happened about 8 months ago when lifting weights, was seen once before and was told would heal on its own. Reports no improvement. CbrumbackRN PLAN OF CARE VITAL SIGNS Height 72 in 2017-04-24 Weight 193 lbs 2017-04-24 Temperature 99.1 degrees Fahrenheit 2017-04-24 Heart Rate 68 bpm 2017-04-24 Respiratory Rate 16 2017-04-24 BMI 26.17 kg/m2 2017-04-24 Blood pressure systolic 140 mmHg 2017-04-24 Blood pressure diastolic 90 mmHg 2017-04-24 MEDICATIONS Medication Instructions Dosage Frequency Start Date End Date Duration Status PredniSONE 20 mg Orally Once a day 2 tablets 24h Apr, Apr, 05 days Active RESULTS No Results PROCEDURES No Known procedures INSTRUCTIONS MEDICATIONS ADMINISTERED No Known Medications MEDICAL (GENERAL) HISTORY Type Description Date Medical History HTN Hospitalization History pneumonia 2015
== END 2017-09-23 17:49 | disposition home or self-care (01) ==
LOC: EDUNIT# 16:49 → ER 16:50
DX: M54.2 Cervicalgia (principal); M54.5 Low back pain; G89.29 Other chronic pain; F17.210 Nicotine dependence, cigarettes, uncomplicated; I10 Essential (primary) hypertension
CPT/HCPCS: 96372; 99284

== ENCOUNTER → 2017-09-26 | Outpatient (CLI) | payer SELFPAY ==
[~2017-09-26] MED LIST changes: +METH4TAB PO; +METH500T PO; +PROM25TA14 PO
--- NOTE | 2017-09-26 12:50 | Diagnostic Imaging Report ---
PROCEDURE: MRI lumbar spine. TECHNIQUE: Multiplanar, multisequence MRI of the lumbar spine was performed without contrast. INDICATION: Low back pain and bilateral leg weakness. No prior studies available for comparison. Curvature and alignment of the lumbar spine is normal. Vertebral body heights are maintained. The marrow signal intensity is unremarkable. No geographic marrow lesion or acute compression fracture seen. There is fairly normal height and signal intensity to the lumbar discs. The conus is unremarkable at the L1-L2 level. T12-L1: No central canal or neural foramina stenosis is identified. L1-L2: Unremarkable. L2-L3: Unremarkable. L3-L4: No significant central canal or neural foraminal stenosis seen. There is mild ligamentous thickening present. L4-L5: There is annular bulging but central canal remains patent. Ligamentous thickening is seen. There appears to be very mild bilateral neural foramina narrowing and bilateral lateral recess narrowing. L5-S1: There is degenerative facet changes and broad-based disc/osteophyte complex. There is narrowing of bilateral lateral recesses. There is moderate bilateral neuroforaminal stenosis as well. Central canal is patent. Paraspinous tissues are unremarkable. IMPRESSION: Spondylosis with lateral recess and neural foraminal narrowing described level by level above. No central canal stenosis is seen. No acute compression fracture is detected. Dictated by: Dictated on workstation # [id number]
== END ==
LOC: RAD 11:12
PROVIDERS: ATTEND Internal Medicine
DX: M51.16 Intervertebral disc disorders with radiculopathy, lumbar region (principal); M47.27 Other spondylosis with radiculopathy, lumbosacral region; M99.73 Connective tissue and disc stenosis of intervertebral foramina of lumbar region
CPT/HCPCS: 72148

== ENCOUNTER 2017-09-27 07:45 | Emergency (ER) | payer SELFPAY ==
[~2017-09-27] VITALS: Ht 180.3 cm; Wt 77.6 kg
[~2017-09-27 07:45] MED LIST changes: -PROM25TA14 PO
[2017-09-27 09:04] LABS: ABG BASE EXCESS -0.4 MMOL/L (-2.5-2.5); ABG OXYGEN SATURATION 99 % (94-100); ABG PCO2 34 MMHG (35-45); ABG PH 7.44 (7.37-7.43); ABG PO2 90 MMHG (79-93); ABG TCO2 24.4 MMOL/L (21.0-31.0); ALLENS TEST YES-POS; INSPIRED O2 ROOM AIR; PATIENT TEMP 97.4; VENTILATOR NO
[2017-09-27] MEDS ORDERED: NS IV 1000 ML 1,000 ML IV ONE (09:21)
[2017-09-27 09:34] LABS: BASOPHILS % (AUTO) 0 % (0-10); EOSINOPHILS % (AUTO) 0 % (0-10); HEMATOCRIT 42 % (40-54); HEMOGLOBIN 15.1 G/DL (13.3-17.7); LYMPHOCYTES # (AUTO) 1.9 X 10^3 (1.0-4.0); LYMPHOCYTES % (AUTO) 30 % (12-44); MEAN CORPUSCULAR HEMOGLOBIN 30 PG (25-34); MEAN CORPUSCULAR HGB CONC 36 G/DL (32-36); MEAN CORPUSCULAR VOLUME 84 FL (80-99); MEAN PLATELET VOLUME 11.9 FL (7.4-10.4); MONOCYTES # (AUTO) 0.9 X 10^3 (0.0-1.0); MONOCYTES % (AUTO) 15 % (0-12); NEUTROPHILS # (AUTO) 3.4 X 10^3 (1.8-7.8); NEUTROPHILS % (AUTO) 55 % (42-75); PLATELET COUNT 178 10^3/uL (130-400); RED BLOOD COUNT 5.04 10^6/uL (4.35-5.85); WHITE BLOOD COUNT 6.3 10^3/uL (4.3-11.0)
--- NOTE | 2017-09-27 09:49 | ED General ---
General Chief Complaint: Exposure Stated Complaint: EXPOSED TO CARBON MONOXIDE AT HOME Nursing Triage Note: PT TO ED CO OF POSSIBLE INHALATION OF CARBON MONOXIDE, ALARM WENT OFF AND FIRE DEPT TOLD PT LEVEL WAS 50. PT CO OF DIZZINESS AND NAUSEA, PT STATES NAUSEA STARTED YESTERDAY Nursing Sepsis Screen: No Definite Risk Source of Information: Patient Exam Limitations: No Limitations History of Present Illness Date Seen by Provider: Sep 27, 2017 Time Seen by Provider: 08:35 Initial Comments Here with report of carbon monoxide exposure. Patient lives in a duplex and apparently the CO alarm went off in the house next door yesterday. Those tenants remove the batteries and did not further evaluate the concerns. This morning, the house that the patient lives in the CO monitor alarm went off and they called the fire department. Fire department did find that there was elevated levels of carbon monoxide in the house and recommended evaluation in the emergency department. Patient has had some dizziness and nausea recently over the last few days. States he has not felt well. Denies fever or chills. Patient is a smoker. Timing/Duration: 2-3 Days Severity: Mild Associated Systoms: No Chest Pain, No Fever/Chills; Headaches, Nausea/Vomiting ; No Shortness of Air, No Weakness Allergies and Home Medications Allergies Coded Allergies: No Known Drug Allergies (Unverified , 09/09/17) Home Medications Hydrocodone Bit/Acetaminophen 1 Tab Tab, 1 EACH PO Q6H PRN for BREAKTHROUGH PAIN Prescribed by: GWEN WHALEY on 09/09/172010 Methocarbamol 500 Mg Tablet, 500 MG PO QID Prescribed by: COSMO CORDERO on 09/23/171735 Methylprednisolone 4 Mg Tab.ds.pk, 4 MG PO UD Prescribed by: COSMO CORDERO on 09/23/17 173 Patient Home Medication List Home Medication List Reviewed: Yes Review of Systems Constitutional: see HPI; No chills, No fever EENTM: no symptoms reported Respiratory: no symptoms reported Cardiovascular: no symptoms reported Gastrointestinal: nausea; No vomiting Genitourinary: no symptoms reported Musculoskeletal: no symptoms reported Skin: no symptoms reported All Other Systems Reviewed Negative Unless Noted: Yes Past Dlotqwp-Qxklup-Fihujn Hx Past Med/Social Hx: Reviewed Nursing Past Med/Soc Hx Patient Social History Alcohol Use: Denies Use Recreational Drug Use: No Smoking Status: Current Everyday Smoker Type Used: Cigarettes Recent Foreign Travel: No Contact w/Someone Who Travel: No Recent Infectious Disease Expo: No Recent Hopitalizations: No Physical Abuse: No Sexual Abuse: No Past Medical History Surgeries: No Respiratory: No Cardiac: Yes Hypertension Neurological: No Genitourinary: No Gastrointestinal: No Musculoskeletal: Yes (CHRONIC NECK PAIN ) Degenerate Disk Disease, Chronic Back Pain Endocrine: No HEENT: No Cancer: No Psychosocial: No Nursing Suicide Risk Score: 0 Integumentary: No Blood Disorders: No Family Medical History Reviewed Nursing Family Hx Physical Exam Vital Signs Vital Signs - First Documented 09/27/17 08:05 Temp 98.4 Pulse 91 Resp 18 B/P (MAP) 150/102 (118) Pulse Ox 98 O2 Delivery Room Air Capillary Refill : Less Than 3 Seconds Height, Weight, BMI Height: 5'11.00" Weight: 171lbs. oz. 77.443541gx; BMI Method:Stated General Appearance: No Apparent Distress, WD/WN HEENT: PERRL/EOMI, Pharynx Normal Neck: Non Tender, Supple Respiratory: Lungs Clear, Normal Breath Sounds Cardiovascular: Regular Rate, Rhythm, No Murmur Gastrointestinal: Non Tender, Soft Back: Normal Inspection, No CVA Tenderness, No Vertebral Tenderness Extremity: Normal Range of Motion, Non Tender Neurologic/Psychiatric: Alert, Oriented x3 Skin: Normal Color, Warm/Dry Progress/Results/Core Measures Suspected Sepsis Recent Fever Within 48 Hours: No Infection Criteria Present: None New/Unexplained Altered Menta: No Sepsis Screen: No Definite Risk SIRS Temperature:98.4 Pulse: 91 Respiratory Rate: 18 Laboratory Tests 09/27/17 09:20: White Blood Count 6.3 Blood Pressure 150 /102 Mean: 118 Laboratory Tests 09/27/17 09:20: Creatinine 0.66, Platelet Count 178, Total Bilirubin 0.7 Results/Orders Lab Results Laboratory Tests Test 09/27/17 08:56 09/27/17 08:57 09/27/17 09:20 09/27/17 10:08 Range/Units Blood Gas Puncture Site R RAD Blood Gas Patient Temperature 97.4 Arterial Blood pH 7.44 H 7.37-7.43 Arterial Blood Partial Pressure CO2 34 L 35-45 MMHG Arterial Blood Partial Pressure O2 90 79-93 MMHG Arterial Blood HCO3 23 23-27 MMOL/L Arterial Blood Total CO2 24.4 21.0-31.0 MMOL/L Arterial Blood Oxygen Saturation 99 94-100 % Arterial Blood Base Excess -0.4 -2.5-2.5 MMOL/L Kemar Test YES-POS Blood Gas Ventilator Setting NO Blood Gas Inspired Oxygen ROOM AIR Carboxyhemoglobin 3.7 H 0.5-2.5 % White Blood Count 6.3 4.3-11.0 10^3/uL Red Blood Count 5.04 4.35-5.85 10^6/uL Hemoglobin 15.1 13.3-17.7 G/DL Hematocrit 42 40-54 % Mean Corpuscular Volume 84 80-99 FL Mean Corpuscular Hemoglobin 30 25-34 PG Mean Corpuscular Hemoglobin Concent 36 32-36 G/DL Red Cell Distribution Width 13.0 10.0-14.5 % Platelet Count 178 130-400 10^3/uL Mean Platelet Volume 11.9 H 7.4-10.4 FL Neutrophils (%) (Auto) 55 42-75 % Lymphocytes (%) (Auto) 30 12-44 % Monocytes (%) (Auto) 15 H 0-12 % Eosinophils (%) (Auto) 0 0-10 % Basophils (%) (Auto) 0 0-10 % Neutrophils # (Auto) 3.4 1.8-7.8 X 10^3 Lymphocytes # (Auto) 1.9 1.0-4.0 X 10^3 Monocytes # (Auto) 0.9 0.0-1.0 X 10^3 Eosinophils # (Auto) 0.0 0.0-0.3 10^3/uL Basophils # (Auto) 0.0 0.0-0.1 10^3/uL Sodium Level 141 135-145 MMOL/L Potassium Level 4.2 3.6-5.0 MMOL/L Chloride Level 107 98-107 MMOL/L Carbon Dioxide Level 24 21-32 MMOL/L Anion Gap 10 5-14 MMOL/L Blood Urea Nitrogen 19 H 7-18 MG/DL Creatinine 0.66 0.60-1.30 MG/DL Estimat Glomerular Filtration Rate > 60 BUN/Creatinine Ratio 29 Glucose Level 103 70-105 MG/DL Calcium Level 11.3 H 8.5-10.1 MG/DL Total Bilirubin 0.7 0.1-1.0 MG/DL Aspartate Amino Transf (AST/SGOT) 36 H 5-34 U/L Alanine Aminotransferase (ALT/SGPT) 50 0-55 U/L Alkaline Phosphatase 114 40-136 U/L Total Protein 6.8 6.4-8.2 GM/DL Albumin 3.8 3.2-4.5 GM/DL Urine Color YELLOW Urine Clarity CLEAR Urine pH 5 5-9 Urine Specific Percival 1.020 1.016-1.022 Urine Protein 2+ H NEGATIVE Urine Glucose (UA) NEGATIVE NEGATIVE Urine Ketones 1+ H NEGATIVE Urine Nitrite NEGATIVE NEGATIVE Urine Bilirubin NEGATIVE NEGATIVE Urine Urobilinogen NORMAL NORMAL MG/DL Urine Leukocyte Esterase 1+ H NEGATIVE Urine RBC (Auto) 2+ H NEGATIVE Urine RBC RARE /HPF Urine WBC 2-5 /HPF Urine Squamous Epithelial Cells 2-5 /HPF Urine Renal Epithelial Cells NONE /HPF Urine Crystals NONE /LPF Urine Bacteria TRACE /HPF Urine Casts PRESENT /LPF Urine Hyaline Casts 0-2 H /LPF Urine White Blood Cell Casts RARE H /LPF Urine Mucus MODERATE H /LPF Urine Culture Indicated NO My Orders Orders - MÓNICA SANZ MD Arterial Blood Gas (09/27/17 07:49) Carboxyhemoglobin (09/27/17 07:49) Cbc With Automated Diff (09/27/17 09:21) Comprehensive Metabolic Panel (09/27/17 09:21) Ua Culture If Indicated (09/27/17 09:21) Saline Lock/Iv-Start (09/27/17 09:21) Ns Iv 1000 Ml (Sodium Chloride 0.9%) (09/27/17 09:21) Ketorolac Injection (Toradol Injection) (09/27/17 10:13) Ondansetron Injection (Zofran Injectio (09/27/17 10:15) Medications Given in ED Current Medications Medications Dose Ordered Sig/Allison Route Start Time Stop Time Status Last Admin Dose Admin Ondansetron HCl 4 mg ONCE ONCE IVP 09/27/17 10:15 09/27/17 10:16 DC 09/27/17 10:19 4 MG Sodium Chloride 1,000 ml @ 0 mls/hr Q0M ONCE IV 09/27/17 09:21 09/27/17 09:22 DC 09/27/17 09:31 1,000 MLS/HR Vital Signs/I&O 09/27/17 09/27/17 08:05 08:05 Temp 98.4 Pulse 91 Resp 18 B/P (MAP) 150/102 (118) Pulse Ox 98 O2 Delivery Room Air Capillary Refill : Less Than 3 Seconds Blood Pressure Mean: 118 Progress Note : Progress Note Seen and evaluated. Carboxyhemoglobin an ABG ordered. These did not show any significant findings and level appropriate for smoker. Patient has had a few days of symptoms and this may be related to something else. We will check basic labs and give IV fluid. Patient is in agreement. Normal saline 1 L bolus and labs ordered. Monitor patient. Patient was having some back pain and currently is in evaluation for this. MRI done yesterday results reviewed. Does have some lateral recess narrowing. Toradol 30 mg IV and Zofran 4 mg IV ordered. Monitor patient. 1055: Results reviewed reviewed with the patient. He does need continued follow-up in the clinic related to the fact symptoms. Otherwise no acute findings. Discharged home with return precautions. Patient verbalize understanding instructions and agreement with plan. Departure Impression Primary Impression: Carbon monoxide exposure Additional Impression: Chronic neck and back pain Disposition: HOME, SELF-CARE Condition: Stable Departure-Patient Inst. Decision time for Depature: 11:02 Referrals: [facility]/ (PCP) Primary Care Physician INES ROBINS (Family) Primary Care Physician Patient Instructions: Carbon Monoxide Poisoning (DC), Low Back Pain (DC), Radiculopathy (DC) Add. Discharge Instructions: All discharge instructions reviewed with patient and/or family. Voiced understanding. Continue medications as directed. Follow-up with the clinic for recheck and further evaluation and to discuss the MRI results further. Drink plenty of fluids. Return for worse pain, fever, vomiting, weakness, breathing problems or other concerns as needed. Scripts Promethazine HCl (Promethazine Tablet) 25 Mg Tablet 25 MG PO Q8H PRN for NAUSEA/VOMITING, #14 TAB 0 Refills Prov: MÓNICA SANZ MD 09/27/17 Copy Copies To 1: CARMEN GRAF TIMOTHY D MD Sep 27, 2017 09:49
[2017-09-27 09:51] LABS: ALANINE AMINOTRANSFERASE 50 U/L (0-55); ALBUMIN 3.8 GM/DL (3.2-4.5); ALKALINE PHOSPHATASE 114 U/L (40-136); BILIRUBIN,TOTAL 0.7 MG/DL (0.1-1.0); BUN/CREATININE RATIO 29; CALCIUM 11.3 MG/DL (8.5-10.1); CARBON DIOXIDE 24 MMOL/L (21-32); CHLORIDE 107 MMOL/L (98-107); CREATININE SERUM 0.66 MG/DL (0.60-1.30); GFR ESTIMATED > 60; GLUCOSE 103 MG/DL (70-105); POTASSIUM 4.2 MMOL/L (3.6-5.0); SODIUM 141 MMOL/L (135-145); TOTAL PROTEIN 6.8 GM/DL (6.4-8.2)
[2017-09-27] MEDS ORDERED: KETOROLAC 30 MG/ML VIAL IVP STA (10:13)
[2017-09-27] MEDS ORDERED: ONDANSETRON 4 MG/2 ML (SDV) Z0FRAN IVP ONE (10:15)
[2017-09-27 10:20] LABS: BILIRUBIN,URINE NEGATIVE (NEGATIVE); CLARITY,URINE CLEAR; COLOR,URINE YELLOW; GLUCOSE, URINE (UA) NEGATIVE (NEGATIVE); KETONES,URINE 1+ (NEGATIVE); LEUKOCYTE ESTERASE ,URINE 1+ (NEGATIVE); NITRITE,URINE NEGATIVE (NEGATIVE); PH,URINE 5 (5-9); PROTEIN,URINE 2+ (NEGATIVE); UROBILINOGEN,URINE NORMAL (NORMAL)
[2017-09-27 10:35] LABS: BACTERIA,URINE TRACE /HPF; HYALINE CASTS, URINE 0-2 /LPF; RBC,URINE RARE /HPF; WHITE BLOOD CELL CASTS, URINE RARE /LPF
[2017-09-27] MEDS ORDERED: PROM25TA14 PO (11:04)
[2017-09-27 11:13] VITALS: BP 150/102
== END 2017-09-27 11:13 | disposition home or self-care (01) ==
LOC: EDUNIT# 07:45 → ER 07:47
DX: T58.91XA Toxic effect of carbon monoxide from unspecified source, accidental (unintentional), initial encounter (principal); M54.2 Cervicalgia; M54.9 Dorsalgia, unspecified; G89.29 Other chronic pain; I10 Essential (primary) hypertension; F17.210 Nicotine dependence, cigarettes, uncomplicated; Z79.52 Long term (current) use of systemic steroids; Y92.009 Unspecified place in unspecified non-institutional (private) residence as the place of occurrence of the external cause
CPT/HCPCS: 36415; 36600; 80053; 81000; 82375; 82805; 85025; 96361; 96374; 96375

== ENCOUNTER → 2017-10-09 | Outpatient (CLI) | payer SELFPAY ==
[~2017-10-09] MED LIST changes: +PROM25TA14 PO
== END ==
LOC: LAB 13:45
PROVIDERS: ATTEND Internal Medicine Endocrinology, Diabetes & Metabolism
DX: E05.00 Thyrotoxicosis with diffuse goiter without thyrotoxic crisis or storm (principal)
CPT/HCPCS: 36415; 84439; 84480

== ENCOUNTER → 2017-10-13 | Outpatient (CLI) | payer SELFPAY ==
[2017-10-13 12:38] LABS: FREE T4 (FREE THYROXINE) 1.39 NG/DL (0.70-1.48)
== END ==
LOC: LAB 11:36
PROVIDERS: ATTEND Nurse Practitioner
DX: E05.00 Thyrotoxicosis with diffuse goiter without thyrotoxic crisis or storm (principal); E06.3 Autoimmune thyroiditis; E01.0 Iodine-deficiency related diffuse (endemic) goiter
CPT/HCPCS: 36415; 84439; 84443; 84480

== ENCOUNTER → 2017-10-19 | Outpatient (CLI) | payer SELFPAY ==
[2017-10-19 10:07] LABS: FREE T4 (FREE THYROXINE) 1.72 NG/DL (0.70-1.48)
== END ==
LOC: LAB 09:04
PROVIDERS: ATTEND Nurse Practitioner
DX: E06.3 Autoimmune thyroiditis (principal); E05.00 Thyrotoxicosis with diffuse goiter without thyrotoxic crisis or storm
CPT/HCPCS: 36415; 84439; 84443

== ENCOUNTER 2017-12-12 21:20 | Emergency (ER) | payer SELFPAY ==
[~2017-12-12] VITALS: Ht 180.3 cm; Wt 86.2 kg
[~2017-12-12 21:20] MED LIST changes: -AMLO5TAB7 PO
--- OUTSIDE RECORDS SUMMARY | 2017-12-12 21:26 | XMS REPORT ---
Author Author BLANCA THAYER Organization [facility] Address [address] [place] [address] Care Team Providers Care Programming Intern Name Role Phone BLANCA THAYER Unavailable PROBLEMS Type Condition ICD9-CM Code [id number] Code Onset Dates Condition Status SNOMED Code Problem Spinal arthritis M47.819 Active 596310189 Problem Lumbar radiculopathy, chronic M54.16 Active 713505089 Problem Other chronic pain G89.29 Active 15011486 Problem Hypertension, benign I10 Active 78760298 Problem Cigarette nicotine dependence without complication F17.210 Active 92645688 Problem Hyperthyroidism E05.90 Active 36719512 ALLERGIES No Known Allergies ENCOUNTERS Encounter Location Date Diagnosis [place] [id number] [place] [address]- 1979 Nov, [place] [id number] [place] [address] 82537- 2393 Oct, Spinal arthritis M47.819 [place] [id number] [place] [address] 04526- 1267 Sep, [place] [id number] [place] [address] 08711- 4062 Sep, [place] [id number] [place] [address] 54723- 9229 Sep, Lumbar radiculopathy, chronic M54.16 [place] [id number] [place] [address] 09305- 0119 Sep, Lumbar radiculopathy, chronic M54.16 and Cigarette nicotine dependence without complication F17.210 [place] [id number] [place] [address] 30397- 8418 Sep, Lumbar radiculopathy, chronic M54.16 [place] [id number] [place] [address] 11464- 7872 Sep, [place] [phone] Sep, Hyperthyroidism E05.90 [place] [id number] [place] [address] 30213- 1420 Aug, Hypertension, benign I10 ; Cervicalgia M54.2 ; Low back pain M54.5 ; Other chronic pain G89.29 and Family history of diabetes mellitus Z83.3 [facility] WALK IN [facility] [id number] [place] [address] 79095 -7304 Aug, [place] [id number] [place] [address] 40931- 9275 Jun, 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 and Left cervical radiculopathy M54.12 [place] [id number] [place] [address] 72523- 2706 Jun, [place] [id number] [place] [address] 03851- 4340 May, 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 [place] [id number] [place] [address] 70587- 3671 Apr, Left flank mass R19.00 [place] [id number] [place] [address] 38029- 1488 Apr, Strain of latissimus dorsi muscle, subsequent encounter S29.012D [place] [id number] [place] [address] 50443- 9330 Apr, Flank pain R10.9 IMMUNIZATIONS No Known Immunizations SOCIAL HISTORY Never Assessed REASON FOR VISIT Neck pain x 4-5 months, denies injury----DBennettRN, lower back pain, weakness in bilateral legs x several weeks, interested in smoking cessation PLAN OF CARE Activity Details Follow Up Regular appt Reason: VITAL SIGNS Height 72 in 2017-09-21 Weight 177 lbs 2017-09-21 Temperature 98.6 degrees Fahrenheit 2017-09-21 Heart Rate 110 bpm 2017-09-21 Respiratory Rate 20 2017-09-21 BMI 24.00 kg/m2 2017-09-21 Blood pressure systolic 144 mmHg 2017-09-21 Blood pressure diastolic 82 mmHg 2017-09-21 MEDICATIONS Medication Instructions Dosage Frequency Start Date End Date Duration Status Chantix Starting Month Romero 0.5 MG X 11 & 1 MG X 42 as directed Sep, Active Cyclobenzaprine HCl 10 mg Orally 2 times a day 1 tablet as needed 12h Aug, Active Naproxen 500 mg Orally every 12 hrs 1 tablet with food or milk as needed 12h Aug, Active Amlodipine Besylate 5 mg Orally Once a day 1 tablet 24h Aug, 30 day(s) Active Cyclobenzaprine HCl 10 mg Orally 2 times a day 1 tablet as needed 12h 16 Apr, 2017 Not-Taking RESULTS Name Result Date Reference Range MRI : Lumbar w/o contrast 2017-09-26 PROCEDURES No Known procedures INSTRUCTIONS MEDICATIONS ADMINISTERED No Known Medications MEDICAL (GENERAL) HISTORY Type Description Date Medical History HTN Medical History Thyroid problems, has appt with Dr. Aguiar Medical History herniated disks in neck Medical History riducopathy Hospitalization History pneumonia 2015 Hospitalization History Thyroid 09/2017
--- OUTSIDE RECORDS SUMMARY | 2017-12-12 21:26 | XMS REPORT ---
Author Author BLANCA THAYER Organization [facility] Address [address] [place] [address] Care Team Providers Care Bricklayer Tender Name Role Phone BLANCA THAYER Unavailable PROBLEMS Type Condition ICD9-CM Code [id number] Code Onset Dates Condition Status SNOMED Code Problem Spinal arthritis M47.819 Active 622863972 Problem Lumbar radiculopathy, chronic M54.16 Active 331381967 Problem Other chronic pain G89.29 Active 32502393 Problem Hypertension, benign I10 Active 58595452 Problem Cigarette nicotine dependence without complication F17.210 Active 66264802 Problem Hyperthyroidism E05.90 Active 46807579 ALLERGIES No Information ENCOUNTERS Encounter Location Date Diagnosis [place] [id number] [place] [address] 64198- [address] Nov, [place] [id number] [place] [address] 51834- 8262 Oct, Spinal arthritis M47.819 [place] [id number] [place] [address] 23047- 1364 Sep, [place] [id number] [place] [address] 92969- 1692 Sep, [place] [id number] [place] [address] 67879- 9233 Sep, Lumbar radiculopathy, chronic M54.16 [place] [address] 6[address]- [address]34 Sep, Lumbar radiculopathy, chronic M54.16 and Cigarette nicotine dependence without complication F17.210 [place] [id number] [place] [address] 34777- 9353 Sep, Lumbar radiculopathy, chronic M54.16 [facility] [address] [place] [address] 07969- 2067 Sep, [place] [id number] [place] [phone] Sep, Hyperthyroidism E05.90 [place] [id number] [place] [address] 62919- 4266 Aug, Hypertension, benign I10 ; Cervicalgia M54.2 ; Low back pain M54.5 ; Other chronic pain G89.29 and Family history of diabetes mellitus Z83.[address] 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 [place] [id number] [place] [address] 88282- 4082 Apr, Left flank mass R19.00 [place] [id number] [place] [address] 67978- 2299 16 Apr, 2017 Strain of latissimus dorsi muscle, subsequent encounter S29.012D [place] [id number] [place] [address] 16154- 0967 Apr, Flank pain R10.9 IMMUNIZATIONS No Known Immunizations SOCIAL HISTORY Never Assessed REASON FOR VISIT PLAN OF CARE VITAL SIGNS MEDICATIONS Unknown Medications RESULTS No Results PROCEDURES No Known procedures INSTRUCTIONS MEDICATIONS ADMINISTERED No Known Medications MEDICAL (GENERAL) HISTORY Type Description Date Medical History HTN Medical History Thyroid problems, has appt with Dr. Aguiar Medical History herniated disks in neck Medical History riducopathy Hospitalization History pneumonia 2015 Hospitalization History Thyroid 09/2017
--- OUTSIDE RECORDS SUMMARY | 2017-12-12 21:26 | XMS REPORT ---
Author Author BLANCA THAYER Organization [facility] Address [address] [place] [address] Care Team Providers Care Psychometrician Name Role Phone BLANCA THAYER Unavailable PROBLEMS Type Condition ICD9-CM Code [id number] Code Onset Dates Condition Status SNOMED Code Problem Spinal arthritis M47.819 Active 085645408 Problem Lumbar radiculopathy, chronic M54.16 Active 548930685 Problem Other chronic pain G89.29 Active 76616299 Problem Hypertension, benign I10 Active 21612157 Problem Cigarette nicotine dependence without complication F17.210 Active 79082032 Problem Hyperthyroidism E05.90 Active 70863565 ALLERGIES No Information ENCOUNTERS Encounter Location Date Diagnosis [place] [id number] [place] [address] 19574- 9814 Nov, [place] [id number] [place] [address] 76700- 7214 Oct, Spinal arthritis M47.819 [place] [id number] [place] [address] 02017- 2771 Sep, [place] [id number] [place] [address] 72161- 1948 Sep, [place] [id number] [place] [address] 49344- 5571 Sep, Lumbar radiculopathy, chronic M54.16 [place] [address] 28868- 3823 Sep, Lumbar radiculopathy, chronic M54.16 and Cigarette nicotine dependence without complication F17.210 [place] [id number] [place] [address] 88840- 6534 Sep, Lumbar radiculopathy, chronic M54.16 [place] [address] [place] [address] 17958- 6486 Sep, [place] [id number] [place] [address] 29261- 5440 Sep, Hyperthyroidism E05.90 [place] [id number] [place] [address] 79978- 8289 Aug, Hypertension, benign I10 ; Cervicalgia M54.2 ; Low back pain M54.5 ; Other chronic pain G89.29 and Family history of diabetes mellitus Z83.3 [facility] WALK IN [facility] [id number] [place] [address] 84621 -6855 Aug, [place] [id number] [place] [address] 40241- 6351 Jun, 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 and Left cervical radiculopathy M54.12 [place] [id number] [place] [address] 85827- 8048 Jun, [place] [id number] [place] [address] 17563- 8221 May, 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 [place] [id number] [place] [address] 38421- 6436 Apr, Left flank mass R19.00 [place] [id number] [place] [address] 48582- 2862 16 Apr, 2017 Strain of latissimus dorsi muscle, subsequent encounter S29.012D [place] [id number] [place] [address] 86512- 6225 Apr, Flank pain R10.9 IMMUNIZATIONS No Known Immunizations SOCIAL HISTORY Never Assessed REASON FOR VISIT qty change PLAN OF CARE VITAL SIGNS MEDICATIONS Medication Instructions Dosage Frequency Start Date End Date Duration Status Chantix Starting Month Romero 0.5 MG X 11 & 1 MG X 42 as directed Sep, Active RESULTS No Results PROCEDURES No Known procedures INSTRUCTIONS MEDICATIONS ADMINISTERED No Known Medications MEDICAL (GENERAL) HISTORY Type Description Date Medical History HTN Medical History Thyroid problems, has appt with Dr. Aguiar Medical History herniated disks in neck Medical History riducopathy Hospitalization History pneumonia 2015 Hospitalization History Thyroid 09/2017
--- OUTSIDE RECORDS SUMMARY | 2017-12-12 21:26 | XMS REPORT ---
Author Author INES ROBINS Organization [facility] [place] Address [address] [place] [address] Care Team Providers Care Manager Corporate Marketing Name Role Phone INES ROBINS Unavailable PROBLEMS Type Condition ICD9-CM Code [id number] Code Onset Dates Condition Status SNOMED Code Problem Spinal arthritis M47.819 Active 459329201 Problem Lumbar radiculopathy, chronic M54.16 Active 259052810 Problem Other chronic pain G89.29 Active 46851769 Problem Hypertension, benign I10 Active 37585347 Problem Cigarette nicotine dependence without complication F17.210 Active 13892782 Problem Hyperthyroidism E05.90 Active 88406633 ALLERGIES No Known Allergies ENCOUNTERS Encounter Location Date Diagnosis [place] [id number] [place] [address] 13475- 0927 Nov, [place] [id number] [place] [address] 00790- 5839 Oct, Spinal arthritis M47.819 [place] [id number] [place] [address] 59233- 2133 Sep, [place] [id number] [place] [address] 26995- 7059 Sep, [place] [id number] [place] [address] 66567- 3921 Sep, Lumbar radiculopathy, chronic M54.16 [place] [address] 03874- 7008 Sep, Lumbar radiculopathy, chronic M54.16 and Cigarette nicotine dependence without complication F17.210 [facility] [place] [id number] [place] [address] 91575- 7653 Sep, Lumbar radiculopathy, chronic M54.16 [place] [id number] [place] [address] 85223- 7292 Sep, [place] [id number] [place] [address] 24004- 7886 Sep, Hyperthyroidism E05.90 [place] [id number] [place] [address] 73784- 9330 Aug, Hypertension, benign I10 ; Cervicalgia M54.2 ; Low back pain M54.5 ; Other chronic pain G89.29 and Family history of diabetes mellitus Z83.3 [facility] [id number] [place] [address] 94923 -4134 Aug, [place] [id number] [place] [address] 59373- 2423 Jun, 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 and Left cervical radiculopathy M54.12 [place] [id number] [place] [address] 66466- 8724 Jun, [place] [id number] [place] [address] 23672- 5216 May, 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 PT also has concerns with kidney infection. PT was seen in walk in yesterday evening-Giles BOLANOS PLAN OF CARE VITAL SIGNS Height 72 in 2017-09-08 Weight 179.7 lbs 2017-09-08 Temperature 98.2 degrees Fahrenheit 2017-09-08 Heart Rate 96 bpm 2017-09-08 Respiratory Rate 18 2017-09-08 BMI 24.37 kg/m2 2017-09-08 Blood pressure systolic 144 mmHg 2017-09-08 Blood pressure diastolic 88 mmHg 2017-09-08 MEDICATIONS Medication Instructions Dosage Frequency Start Date End Date Duration Status Amlodipine Besylate 5 mg Orally Once a day 1 tablet 24h Aug, 30 day(s) Active Cyclobenzaprine HCl 10 mg Orally 2 times a day 1 tablet as needed 12h Aug, Active Cyclobenzaprine HCl 10 mg Orally 2 times a day 1 tablet as needed 12h Apr, Not-Taking Naproxen 500 mg Orally every 12 hrs 1 tablet with food or milk as needed 12h Aug, Active RESULTS No Results PROCEDURES Procedure Date Ordered Result Body Site GLYCATED HEMOGLOBIN TEST September 08, 2017 COMPREHEN METABOLIC PANEL September 08, 2017 LIPID PANEL September 08, 2017 ASSAY THYROID STIM HORMONE September 08, 2017 COMPLETE CBC W/AUTO DIFF WBC September 08, 2017 INSTRUCTIONS MEDICATIONS ADMINISTERED No Known Medications MEDICAL (GENERAL) HISTORY Type Description Date Medical History HTN Medical History Thyroid problems, has appt with Dr. Aguiar Medical History herniated disks in neck Medical History riducopathy Hospitalization History pneumonia 2015 Hospitalization History Thyroid 09/2017
--- OUTSIDE RECORDS SUMMARY | 2017-12-12 21:26 | XMS REPORT ---
Author Author BLANCA THAYER Organization [facility] Address [address] [place] [address] Care Team Providers Care General Manager Farm Name Role Phone BLANCA THAYER Unavailable PROBLEMS Type Condition ICD9-CM Code NMA98-HR Code Onset Dates Condition Status SNOMED Code Problem Spinal arthritis M47.819 Active 966020072 Problem Lumbar radiculopathy, chronic M54.16 Active 549230883 Problem Other chronic pain G89.29 Active 86496482 Problem Hypertension, benign I10 Active 00205526 Problem Cigarette nicotine dependence without complication F17.210 Active 46713631 Problem Hyperthyroidism E05.90 Active 83024535 ALLERGIES No Information ENCOUNTERS Encounter Location Date Diagnosis [place] [id number] [place] [address] 90286- 3161 Oct, Spinal arthritis M47.819 [place] [id number] [place] [address] 22650- 5737 Sep, [place] [id number] [place] [address] 14789- 5196 Sep, [place] [id number] [place] [address] 72467- 8453 Sep, Lumbar radiculopathy, chronic M54.16 [place] [address] [place] [address] 43096- 6643 Sep, Lumbar radiculopathy, chronic M54.16 and Cigarette nicotine dependence without complication F17.210 [place] [id number] [place] [address] 76196- 2859 Sep, Lumbar radiculopathy, chronic M54.16 [place] [id number] [place] [address] 92761- 4183 Sep, [facility] [address] [address] 4110 Sep, Hyperthyroidism E05.90 [place] [address] [place] [address] 519490- 1866 Aug, Hypertension, benign I10 ; Cervicalgia M54.2 ; Low back pain M54.5 ; Other chronic pain G89.29 and Family history of diabetes mellitus Z83.3 [facility]ALK [facility] [address], [place] [address] Aug, [place] [id number] [place] [address] 63934- 3030 Jun, 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 and Left cervical radiculopathy M54.12 [place] [id number] [place] [address] 37632- 6193 Jun, [place] [id number] [place] [address] 28876- 6480 May, 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 [place] [id number] [place] [address] 05092- 5056 20 Apr, 2017 Left flank mass R19.00 [place] [address] [place] [address] 13203- 1582 16 Apr, 2017 Strain of latissimus dorsi muscle, subsequent encounter S29.012D [place] [id number] [place] [address] 99630- 9171 12 Apr, 2017 Flank pain R10.9 IMMUNIZATIONS No Known Immunizations SOCIAL HISTORY Never Assessed REASON FOR VISIT No Answer PLAN OF CARE VITAL SIGNS MEDICATIONS No Known Medications RESULTS No Results PROCEDURES No Known procedures INSTRUCTIONS MEDICATIONS ADMINISTERED No Known Medications MEDICAL (GENERAL) HISTORY Type Description Date Medical History HTN Medical History Thyroid problems, has appt with Dr. Aguiar Medical History herniated disks in neck Medical History riducopathy Hospitalization History pneumonia 2016 Hospitalization History Thyroid 09/2017
--- OUTSIDE RECORDS SUMMARY | 2017-12-12 21:26 | XMS REPORT ---
Author Author INES ROBINS Organization [facility] Address [address] [place] [address] Care Team Providers Care Director [employer] Name Role Phone INES ROBINS Unavailable PROBLEMS Type Condition ICD9-CM Code BDQ18-CF Code Onset Dates Condition Status SNOMED Code Problem Spinal arthritis M47.819 Active 302352023 Problem Lumbar radiculopathy, chronic M54.16 Active 295028465 Problem Other chronic pain G89.29 Active 05086769 Problem Hypertension, benign I10 Active 91138817 Problem Cigarette nicotine dependence without complication F17.210 Active 42068672 Problem Hyperthyroidism E05.90 Active 07139240 ALLERGIES No Information ENCOUNTERS Encounter Location Date Diagnosis [place] [id number] [place] [address] 36365- 9003 Oct, Spinal arthritis M47.819 [place] [id number] [place] [address] 15309- 1183 Sep, [place] [id number] [place] [address] 55770- 5813 Sep, [place] [id number] [place] [address] 18424- 5869 Sep, Lumbar radiculopathy, chronic M54.16 [place] [id number] [place] [address] 60637- 3066 Sep, Lumbar radiculopathy, chronic M54.16 and Cigarette nicotine dependence without complication F17.210 [facility] [id number] [place] [address] 24908- 2091 Sep, Lumbar radiculopathy, chronic M54.16 [place] [address] 72613- 4694 Sep, [place] [id number] [place] [address] 15595- 6895 Sep, Hyperthyroidism E05.90 [place] [id number] [place] [address] 41746- 7721 Aug, Hypertension, benign I10 ; Cervicalgia M54.2 ; Low back pain M54.5 ; Other chronic pain G89.29 and Family history of diabetes mellitus Z83.3 [facility] [id number] [place] [address] 58142 -3406 Aug, [place] [address] 09619- 8350 Jun, 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 and Left cervical radiculopathy M54.12 [place] [address] 60090- 6958 Jun, [place] [address] 79684- 8910 May, 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
--- OUTSIDE RECORDS SUMMARY | 2017-12-12 21:26 | XMS REPORT ---
Author Author INES ROBINS Organization [facility] [place] Address [address] [place] [address] Care Team Providers Care Kiln Setter Name Role Phone INES ROBINS Unavailable PROBLEMS Type Condition ICD9-CM Code TZB09-ZX Code Onset Dates Condition Status SNOMED Code Problem Spinal arthritis M47.819 Active 753339346 Problem Lumbar radiculopathy, chronic M54.16 Active 687252577 Problem Other chronic pain G89.29 Active 92572568 Problem Hypertension, benign I10 Active 74358851 Problem Cigarette nicotine dependence without complication F17.210 Active 98377684 Problem Hyperthyroidism E05.90 Active 59194839 ALLERGIES No Information ENCOUNTERS Encounter Location Date Diagnosis [place] [id number] [place] [address] 55130- 9298 Nov, [place] [id number] [place] [address] 45222- 0058 Oct, Spinal arthritis M47.819 [place] [id number] [place] [address] 94304- 6019 Sep, [place] [id number] [place] [address] 24273- 7807 Sep, [place] [id number] [place] [address] 29599- 5341 Sep, Lumbar radiculopathy, chronic M54.16 [place] [address] 62408- 1348 Sep, Lumbar radiculopathy, chronic M54.16 and Cigarette nicotine dependence without complication F17.210 [facility] [place] [id number] [place] [address] 63497- 8921 Sep, Lumbar radiculopathy, chronic M54.16 [facility] [place] [id number] [place] [address] 38748- 4941 Sep, [place] [address] 26178- 8114 Sep, Hyperthyroidism E05.90 [place] [address] 07903- 3515 Aug, Hypertension, benign I10 ; Cervicalgia M54.2 ; Low back pain M54.5 ; Other chronic pain G89.29 and Family history of diabetes mellitus Z83.3 [facility] [id number] [place] [address] 80317 -7131 Aug, [place] [address] 05535- 8214 Jun, 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 and Left cervical radiculopathy M54.12 [place] [address] 03126- 4475 Jun, [place] [id number] [place] [address] 66991- 9219 May, 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 [place] [id number] [place] [address] 02567- 1675 20 Apr, 2017 Left flank mass R19.00 [place] [id number] [place] [address] 46488- 6924 16 Apr, 2017 Strain of latissimus dorsi muscle, subsequent encounter S29.012D [place] [id number] [place] [address] 59276- 2804 Apr, Flank pain R10.9 IMMUNIZATIONS No Known Immunizations SOCIAL HISTORY Never Assessed REASON FOR VISIT Lab results PLAN OF CARE VITAL SIGNS MEDICATIONS Unknown Medications RESULTS No Results PROCEDURES No Known procedures INSTRUCTIONS MEDICATIONS ADMINISTERED No Known Medications MEDICAL (GENERAL) HISTORY Type Description Date Medical History HTN Medical History Thyroid problems, has appt with Dr. Aguiar Medical History herniated disks in neck Medical History riducopathy Hospitalization History pneumonia 2015 Hospitalization History Thyroid 09/2017
--- OUTSIDE RECORDS SUMMARY | 2017-12-12 21:26 | XMS REPORT ---
Author Author INES ROBINS Organization [facility] Address [address] [place] [address] Care Team Providers Care Analog Ic Design Engineer Name Role Phone INES ROBINS Unavailable PROBLEMS Type Condition ICD9-CM Code QOJ11-DX Code Onset Dates Condition Status SNOMED Code Problem Spinal arthritis M47.819 Active 081163411 Problem Lumbar radiculopathy, chronic M54.16 Active 713117659 Problem Other chronic pain G89.29 Active 29912827 Problem Hypertension, benign I10 Active 36084321 Problem Cigarette nicotine dependence without complication F17.210 Active 04924234 Problem Hyperthyroidism E05.90 Active 11687989 ALLERGIES No Information ENCOUNTERS Encounter Location Date Diagnosis [place] [id number] [place] [address] 22406- 1777 Nov, [place] [id number] [place] [address] 09388- 4305 Oct, Spinal arthritis M47.819 [place] [id number] [place] [address] 26426- 1850 Sep, [place] [id number] [place] [address] 13209- 2560 Sep, [place] [id number] [place] [address] 23599- 2802 Sep, Lumbar radiculopathy, chronic M54.16 [place] [address] 36721- 0963 Sep, Lumbar radiculopathy, chronic M54.16 and Cigarette nicotine dependence without complication F17.210 [place] [id number] [place] [address] 12628- 0716 Sep, Lumbar radiculopathy, chronic M54.16 [facility] [id number] [place] [address] 42659- 1687 Sep, [place] [address] 05559- 0066 Sep, Hyperthyroidism E05.90 [place] [address] 50541- 4747 Aug, Hypertension, benign I10 ; Cervicalgia M54.2 ; Low back pain M54.5 ; Other chronic pain G89.29 and Family history of diabetes mellitus Z83.3 [facility]ALK IN [facility] [id number] [place] [address] 92104 -6871 Aug, [place] [address] 81225- 6389 Jun, 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 and Left cervical radiculopathy M54.12 [place] [address] 98042- 3433 Jun, [place] [id number] [place] [address] 14388- 3722 May, 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
--- OUTSIDE RECORDS SUMMARY | 2017-12-12 21:27 | XMS REPORT ---
Author Author INES ROBINS Organization [facility] Address [address] [place] [address] Care Team Providers Care Condenser Setter Name Role Phone INES ROBINS Unavailable PROBLEMS Type Condition ICD9-CM Code FXR94-FS Code Onset Dates Condition Status SNOMED Code Problem Spinal arthritis M47.819 Active 216368155 Problem Lumbar radiculopathy, chronic M54.16 Active 432514086 Problem Other chronic pain G89.29 Active 51788464 Problem Hypertension, benign I10 Active 52281562 Problem Cigarette nicotine dependence without complication F17.210 Active 03085989 Problem Hyperthyroidism E05.90 Active 07949714 ALLERGIES No Known Allergies ENCOUNTERS Encounter Location Date Diagnosis [place] [id number] [place] [address] 45567- 3310 Nov, [place] [id number] [place] [address] 63022- 5855 Oct, Spinal arthritis M47.819 [place] [id number] [place] [address] 42040- 7865 Sep, [place] [id number] [place] [address] 13332- 0534 Sep, [place] [id number] [place] [address] 18136- 7303 Sep, Lumbar radiculopathy, chronic M54.16 [place] [address] 85823- 2135 Sep, Lumbar radiculopathy, chronic M54.16 and Cigarette nicotine dependence without complication F17.210 [facility] [id number] [place] [address] 75807- 2158 Sep, Lumbar radiculopathy, chronic M54.16 [place] [id number] [place] [address] 76210- 8547 Sep, [place] [id number] [place] [address] 79066- 6716 Sep, Hyperthyroidism E05.90 [place] [id number] [place] [address] 84085- 4384 Aug, Hypertension, benign I10 ; Cervicalgia M54.2 ; Low back pain M54.5 ; Other chronic pain G89.29 and Family history of diabetes mellitus Z83.3 [facility] WALK IN [facility] [id number] [place] [address] 08012 -9470 Aug, [place] [id number] [place] [address] 69182- 1919 Jun, 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012D [place] [id number] [place] [address] 48044- 7843 Apr, Flank pain R10.9 IMMUNIZATIONS No Known Immunizations SOCIAL HISTORY Never Assessed REASON FOR VISIT c/o pain in bilateral legs when gets out of bed, resolves with walking------ DBennettRN, headache started this morning, heart palpitations, chest pressure x1 week, pt reports this was his first day on the job...doesnt want to go to work cause he doesnt feel well. appt in am with paula blanton pt will be excused from work today. [email or web address] PLAN OF CARE VITAL SIGNS Height 72 in 2017-09-07 Weight 180 lbs 2017-09-07 Temperature 99.4 degrees Fahrenheit 2017-09-07 Heart Rate 100 bpm 2017-09-07 Respiratory Rate 20 2017-09-07 BMI 24.41 kg/m2 2017-09-07 Blood pressure systolic 182 mmHg 2017-09-07 Blood pressure diastolic 90 mmHg 2017-09-07 MEDICATIONS Medication Instructions Dosage Frequency Start Date End Date Duration Status Cyclobenzaprine HCl 10 mg Orally 2 times a day 1 tablet as needed 12h 16 Apr, 2017 Not-Taking RESULTS No Results PROCEDURES No Known procedures INSTRUCTIONS MEDICATIONS ADMINISTERED No Known Medications MEDICAL (GENERAL) HISTORY Type Description Date Medical History HTN Medical History Thyroid problems, has appt with Dr. Aguiar Medical History herniated disks in neck Medical History riducopathy Hospitalization History pneumonia 2015 Hospitalization History Thyroid 09/2017
--- OUTSIDE RECORDS SUMMARY | 2017-12-12 21:27 | XMS REPORT ---
Author Author JAVI BORGES [facility] Address [address] [place] [address] Care Team Providers Care Tack Cleaner Name Role Phone JAVI BORGES Unavailable PROBLEMS Type Condition ICD9-CM Code [id number] Code Onset Dates Condition Status SNOMED Code Problem Lumbar radiculopathy, chronic M54.16 Active 105891460 Problem Cigarette nicotine dependence without complication F17.210 Active 24876638 Problem Hypertension, benign I10 Active 57694013 Problem Hyperthyroidism E05.90 Active 82473596 Problem Other chronic pain G89.29 Active 75150410 ALLERGIES No Information ENCOUNTERS Encounter Location Date Diagnosis [facility] [id number] [place] [address] Nov, [facility] [id number] [place] [address] 81550- 5549 Sep, [facility] [id number] [place] [address] 44351- 0659 Sep, Lumbar radiculopathy, chronic M54.16 [facility] [id number] [place] [address] 77376- 1225 Sep, Lumbar radiculopathy, chronic M54.16 and Cigarette nicotine dependence without complication F17.210 [facility] [id number] [place] [address] 80163- 5167 Sep, Lumbar radiculopathy, chronic M54.16 [facility] [address] [address] Sep, [facility] [id number] [place] [address] 27705- 3838 Sep, Hyperthyroidism E05.90 [facility] [address] [place] [address] 01727- 1457 29 Aug, 2017 Hypertension, benign I10 ; Cervicalgia M54.2 ; Low back pain M54.5 ; Other chronic pain G89.29 and Family history of diabetes mellitus Z83.3 [facility] [id number] [place] [address] Aug, [place] [address] [address] Jun, 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 and Left cervical radiculopathy M54.12 [place] [address] [address]- [address] Jun, [place] [id number] [place] [address] 84583- 5268 15 May, 2017 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 [place] [id number] [place] [address] 27286- 2032 20 Apr, 2017 Left flank mass R19.00 [place] [id number] [place] [address] 65544- 9722 16 Apr, 2017 Strain of latissimus dorsi muscle, subsequent encounter S29.012D [place] [id number] [place] [address] 76765- 8633 12 Apr, 2017 Flank pain R10.9 IMMUNIZATIONS No Known Immunizations SOCIAL HISTORY Never Assessed REASON FOR VISIT Referral PLAN OF CARE VITAL SIGNS MEDICATIONS Unknown Medications RESULTS No Results PROCEDURES No Known procedures INSTRUCTIONS MEDICATIONS ADMINISTERED No Known Medications MEDICAL (GENERAL) HISTORY Type Description Date Medical History HTN Hospitalization History pneumonia 2016
--- OUTSIDE RECORDS SUMMARY | 2017-12-12 21:27 | XMS REPORT ---
Author Author INES ROBINS Organization [facility] Address [address] [place] [address] Care Team Providers Care Lead Massage Therapist Name Role Phone INES ROBINS Unavailable PROBLEMS Type Condition ICD9-CM Code [id number] Code Onset Dates Condition Status SNOMED Code Problem Lumbar radiculopathy, chronic M54.16 Active 711654739 Problem Cigarette nicotine dependence without complication F17.210 Active 06594998 Problem Hypertension, benign I10 Active 09535559 Problem Hyperthyroidism E05.90 Active 76727703 Problem Other chronic pain G89.29 Active 57701834 ALLERGIES No Information ENCOUNTERS Encounter Location Date Diagnosis [facility] [address] [address] Nov, [facility] [address] [address] Sep, [facility] [address] [address]- [address] Sep, Lumbar radiculopathy, chronic M54.16 [facility] [id number] [place] [address] 49860- 356[address] Sep, Lumbar radiculopathy, chronic M54.16 and Cigarette nicotine dependence without complication F17.210 [facility] [id number] [place] [address] 00969- 2453 Sep, Lumbar radiculopathy, chronic M54.16 [facility] [address] [address]- [address] Sep, [facility] [id number] [place] [address] 82859- 4562 Sep, Hyperthyroidism E05.90 [facility] [address] [place] [address] 29 Aug, 2017 Hypertension, benign I10 ; Cervicalgia M54.2 ; Low back pain M54.5 ; Other chronic pain G89.29 and Family history of diabetes mellitus Z83.3 [facility] [address] [address] 28 Aug, 2017 [facility] [id number] [place] [address] 61770- 7216 Jun, 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 and Left cervical radiculopathy M54.12 [place] [id number] [place] [address] 55157- 8263 Jun, [place] [id number] [place] [address] 86606- 4101 15 May, 2017 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 [place] [id number] [place] [address] 21258- 0827 20 Apr, 2017 Left flank mass R19.00 [place] [address] [place] [address] 94647- 6793 16 Apr, 2017 Strain of latissimus dorsi muscle, subsequent encounter S29.012D [place] [address] [place] [address] 84360- 3709 12 Apr, 2017 Flank pain R10.9 IMMUNIZATIONS No Known Immunizations SOCIAL HISTORY Never Assessed REASON FOR VISIT Returned call PLAN OF CARE VITAL SIGNS MEDICATIONS Unknown Medications RESULTS No Results PROCEDURES No Known procedures INSTRUCTIONS MEDICATIONS ADMINISTERED No Known Medications MEDICAL (GENERAL) HISTORY Type Description Date Medical History HTN Hospitalization History pneumonia 2016
--- OUTSIDE RECORDS SUMMARY | 2017-12-12 21:27 | XMS REPORT ---
Author Author JAVI BORGES [facility] Address [address] [place] [address] Care Team Providers Care Nursing Support Worker Name Role Phone JAVI BORGES Unavailable PROBLEMS Type Condition ICD9-CM Code [id number] Code Onset Dates Condition Status SNOMED Code Problem Lumbar radiculopathy, chronic M54.16 Active 835672155 Problem Cigarette nicotine dependence without complication F17.210 Active 18290694 Problem Hypertension, benign I10 Active 88974811 Problem Hyperthyroidism E05.90 Active 30962418 Problem Other chronic pain G89.29 Active 55449829 ALLERGIES No Information ENCOUNTERS Encounter Location Date Diagnosis [facility] [id number] [place] [address] 96043- [address] Sep, [facility] [id number] [place] [address] 30820- 5332 Sep, [facility] [id number] [place] [address] 36662- 2080 Sep, Lumbar radiculopathy, chronic M54.16 [facility] [id number] [place] [address] 18625- 6679 Sep, Lumbar radiculopathy, chronic M54.16 and Cigarette nicotine dependence without complication F17.210 [facility] [id number] [place] [address] 96705- 5435 Sep, Lumbar radiculopathy, chronic M54.16 [facility] [address] 270[address]- [address] Sep, [facility] [id number] [place] [address] 86173- 6529 Sep, Hyperthyroidism E05.90 [facility] [address] [address] 29 Aug, 2017 Hypertension, benign I10 ; Cervicalgia M54.2 ; Low back pain M54.5 ; Other chronic pain G89.29 and Family history of diabetes mellitus Z83.3 [facility] [address] [place] [address]70 [address] 28 Aug, 2017 [place] [id number] [place] [address] 21420- 8136 Jun, 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 and Left cervical radiculopathy M54.12 [place] [address] [address]- [address] Jun, [place] [id number] [place] [address] 01742- [address] 15 May, 2017 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 suspect disrupted lat muscle. Consult Javi Fatima RT(R) PLAN OF CARE Activity Details Follow Up prn Reason: VITAL SIGNS Height 72 in 2017-05-25 Blood pressure systolic 136 mmHg 2017-05-25 Blood pressure diastolic 98 mmHg 2017-05-25 MEDICATIONS Unknown Medications RESULTS Name Result Date Reference Range MRI : Cervical w/o Contrast 2017-05-29 PROCEDURES Procedure Date Ordered Result Body Site DRAIN/INJECT, JOINT/BURSA May 25, 2017 DEPO MEDROL 80 MG/ML May 25, 2017 INSTRUCTIONS MEDICATIONS ADMINISTERED No Known Medications MEDICAL (GENERAL) HISTORY Type Description Date Medical History HTN Hospitalization History pneumonia 2015
[2017-12-12] MEDS ORDERED: fentaNYL INJECTION 100 MCG/2 ML AMP IVP STA (22:08)
--- NOTE | 2017-12-12 22:12 | ED General ---
General Chief Complaint: General Problems/Pain Stated Complaint: NECK,BACK,SHOULDER HURTING, HEART RATE LOW Source of Information: Patient Exam Limitations: No Limitations History of Present Illness Date Seen by Provider: Dec 12, 2017 Time Seen by Provider: 22:00 Initial Comments Here with report of neck and back pain as well as shoulder pain. Also notes that his heart rate is low. Does have history agrees disease and thyroid problems. Also has chronic neck pain. He has been set up through the clinic with pain management but they are requesting $1400 for injections and he can't afford that. Normally takes Naprosyn but that is not helping currently. Blood pressure also elevated and he is out of his blood pressure medicine. Denies any new weakness or numbness. Does have known significant degeneration in the neck. Denies nausea or vomiting. Denies breathing problems. Timing/Duration: 1-2 Days Severity: Moderate, Severe Associated Systoms: No Chest Pain, No Cough, No Fever/Chills, No Nausea/ Vomiting, No Shortness of Air, No Weakness Allergies and Home Medications Allergies Coded Allergies: No Known Drug Allergies (Unverified , 09/09/17) Home Medications Hydrocodone Bit/Acetaminophen 1 Tab Tab, 1 EACH PO Q6H PRN for BREAKTHROUGH PAIN Prescribed by: GWEN WHALEY on 09/09/172010 Methocarbamol 500 Mg Tablet, 500 MG PO QID Prescribed by: COSMO CORDERO on 09/23/17 173 Methylprednisolone 4 Mg Tab.ds.pk, 4 MG PO UD Prescribed by: COSMO CORDERO on 09/23/17 173 Promethazine HCl 25 Mg Tablet, 25 MG PO Q8H PRN for NAUSEA/VOMITING Prescribed by: MÓNICA SANZ on 09/27/17 1104 Patient Home Medication List Home Medication List Reviewed: Yes Review of Systems Review of Systems Constitutional: see HPI; No chills, No fever EENTM: no symptoms reported Respiratory: no symptoms reported Cardiovascular: see HPI; No chest pain, No edema Gastrointestinal: No abdominal pain, No nausea, No vomiting Genitourinary: no symptoms reported Musculoskeletal: see HPI, muscle pain, neck pain Skin: no symptoms reported Psychiatric/Neurological: No Symptoms Reported Past Uozkoyw-Brrthy-Whakhn Hx Past Med/Social Hx: Reviewed Nursing Past Med/Soc Hx Patient Social History Alcohol Use: Denies Use Recreational Drug Use: No Smoking Status: Current Everyday Smoker Type Used: Cigarettes 2nd Hand Smoke Exposure: Yes Recent Foreign Travel: No Contact w/Someone Who Travel: No Recent Hopitalizations: No Past Medical History Surgeries: No Respiratory: No Cardiac: Yes Hypertension Neurological: No Genitourinary: No Gastrointestinal: No Musculoskeletal: Yes (CHRONIC NECK PAIN ) Degenerate Disk Disease, Chronic Back Pain Endocrine: Yes Hyperthyroidism, Hypothyroidsim HEENT: No Cancer: No Psychosocial: No Integumentary: No Blood Disorders: No Family Medical History Reviewed Nursing Family Hx Physical Exam Vital Signs Vital Signs - First Documented 12/12/17 21:33 Temp 97.4 Pulse 55 Resp 17 B/P (MAP) 198/111 (140) Pulse Ox 99 O2 Delivery Room Air Capillary Refill : Height, Weight, BMI Height: 5'11.00" Weight: 171lbs. oz. 77.229203az; BMI Method:Stated General Appearance: No Apparent Distress, WD/WN HEENT: PERRL/EOMI, Pharynx Normal Neck: Non Tender, Supple Respiratory: Lungs Clear, Normal Breath Sounds Cardiovascular: Regular Rate, Rhythm, No Murmur Gastrointestinal: Non Tender, Soft Back: Normal Inspection, No CVA Tenderness, No Vertebral Tenderness Extremity: Normal Range of Motion, Non Tender Neurologic/Psychiatric: Alert, Oriented x3 Skin: Normal Color, Warm/Dry Progress/Results/Core Measures Suspected Sepsis SIRS Temperature: Pulse: Respiratory Rate: Blood Pressure / Mean: Laboratory Tests 12/12/17 22:17: Creatinine 1.00 Results/Orders Lab Results Laboratory Tests Test 12/12/17 22:17 Range/Units Sodium Level 142 135-145 MMOL/L Potassium Level 3.6 3.6-5.0 MMOL/L Chloride Level 110 H 98-107 MMOL/L Carbon Dioxide Level 21 21-32 MMOL/L Anion Gap 11 5-14 MMOL/L Blood Urea Nitrogen 12 7-18 MG/DL Creatinine 1.00 0.60-1.30 MG/DL Estimat Glomerular Filtration Rate > 60 BUN/Creatinine Ratio 12 Glucose Level 93 70-105 MG/DL Calcium Level 9.0 8.5-10.1 MG/DL My Orders Orders - MÓNICA SANZ MD Basic Metabolic Panel (12/12/17 22:08) Fentanyl Injection (Sublimaze Injection (12/12/17 22:08) Amlodipine Tablet (Norvasc Tablet) (12/12/17 22:15) Medications Given in ED Current Medications Medications Dose Ordered Sig/Allison Route Start Time Stop Time Status Last Admin Dose Admin Amlodipine Besylate 5 mg ONCE ONCE PO 12/12/17 22:15 12/12/17 22:16 DC 12/12/17 22:42 5 MG Vital Signs/I&O 12/12/17 21:33 Temp 97.4 Pulse 55 Resp 17 B/P (MAP) 198/111 (140) Pulse Ox 99 O2 Delivery Room Air Capillary Refill : Progress Note : Progress Note Seen and evaluated. I did review labs that were taken here today including his thyroid and T4 levels which were both low. We will get chemistry level given his long-term use of NSAIDs for pain control and his hypertension. Patient was given amlodipine 5 mg by mouth which is his typical dosing. Also given fentanyl 75 g IV for pain. Monitor patient. 2325: Overall feeling better. Blood pressure is improved but remains labile. Patient probably needs second agent. I did discuss with him the need for taking his meds as directed and to follow-up as he may need second agent or additional dosing. Patient to be sent home with a small prescription for hydrocodone that he uses intermittently. Discharged home with return precautions. Patient verbalize understanding instructions and agreement with plan. Departure Impression Primary Impression: Neck pain, acute Additional Impressions: Neck pain, chronic Hypertension Qualified Codes: I10 - Essential (primary) hypertension Disposition: 01 HOME, SELF-CARE Condition: Improved Departure-Patient Inst. Decision time for Depature: 23:34 Referrals: BLANCA THAYER MD (PCP) Primary Care Physician INES ROBINS (Family) Primary Care Physician Patient Instructions: Generalized Neck Pain (DC), High Blood Pressure (DC) Add. Discharge Instructions: All discharge instructions reviewed with patient and/or family. Voiced understanding. It is very important that he take her blood pressure medicines. Take those as directed. Follow-up with your doctor this week for recheck and further evaluation and to recheck her blood pressure. You may need additional blood pressure agents/management. Take pain medication as prescribed. If you're not taking the prescribed pain medicine, you may take Tylenol/acetaminophen 1000 mg every 8 hours as needed for pain. Do not take with prescribed pain medicine as they both have acetaminophen in them. Return for worse pain, fever, vomiting, weakness, breathing from other concerns as needed. Scripts Amlodipine Besylate (Amlodipine Besylate) 5 Mg Tablet 5 MG PO DAILY for 30 Days, #30 TAB Prov: MÓNICA SAZN MD 12/12/17 Hydrocodone Bit/Acetaminophen (Hydrocodone/Acetaminophen 5/325mg Tablet) 1 Tab Tab 1 EACH PO Q4-6HR PRN for PAIN-MODERATE MDD 10, #14 TAB 0 Refills Prov: MÓNICA SANZ MD 12/12/17 Copy Copies To 1: CARMEN GRAF TIMOTHY D MD Dec 12, 2017 22:11
[2017-12-12] MEDS ORDERED: amLODIPine 5 MG (NORVASC) TAB PO ONE (22:15)
[2017-12-12 22:44] LABS: BUN/CREATININE RATIO 12; CARBON DIOXIDE 21 MMOL/L (21-32); CHLORIDE 110 MMOL/L (98-107); GFR ESTIMATED > 60; GLUCOSE 93 MG/DL (70-105); POTASSIUM 3.6 MMOL/L (3.6-5.0); SODIUM 142 MMOL/L (135-145)
[2017-12-12] MEDS ORDERED: AMLO5TAB7 PO (23:39)
[2017-12-12] MEDS ORDERED: ACHD5005 PO (23:39)
[2017-12-12] MEDS ORDERED: RX-HYDROCODONE/APAP 5/325 MG #4 TAB PK PO PRN (23:45)
[2017-12-12 23:56] VITALS: BP 190/128
== END 2017-12-12 23:56 | disposition home or self-care (01) ==
LOC: EDUNIT# 21:20 → ER 21:22
DX: M54.2 Cervicalgia (principal); G89.29 Other chronic pain; I10 Essential (primary) hypertension; E05.90 Thyrotoxicosis, unspecified without thyrotoxic crisis or storm; E03.9 Hypothyroidism, unspecified; F17.210 Nicotine dependence, cigarettes, uncomplicated; Z79.52 Long term (current) use of systemic steroids
CPT/HCPCS: 36415; 80048; 99283

== ENCOUNTER → 2017-12-12 | Outpatient (CLI) | payer OTHER ==
[~2017-12-12] MED LIST changes: +AMLO5TAB7 PO
[2017-12-12 12:32] LABS: FREE T4 (FREE THYROXINE) 0.57 NG/DL (0.70-1.48)
== END ==
LOC: LAB 11:38
PROVIDERS: ATTEND Nurse Practitioner
DX: E05.00 Thyrotoxicosis with diffuse goiter without thyrotoxic crisis or storm (principal)
CPT/HCPCS: 36415; 84439; 84443; 84480

== ENCOUNTER 2019-01-14 09:37 | Emergency (ER) | payer SELFPAY ==
[~2019-01-14] VITALS: Ht 180.3 cm; Wt 81.5 kg
[~2019-01-14 09:37] MED LIST changes: +AMLO5TAB9 PO
[2019-01-14 09:57] VITALS: BP 172/111
--- NOTE | 2019-01-14 10:50 | NUR ---
LWBS PATIENT REPORTS HE COULD NOT WAIT ANY LONGR WAS INFORMED THAT ED BUSY
== END 2019-01-14 10:50 | disposition left against medical advice (07) ==
LOC: EDUNIT# 09:37 → ER 09:38
DX: G89.29 Other chronic pain (principal); M54.2 Cervicalgia; M25.561 Pain in right knee; M25.562 Pain in left knee; M79.601 Pain in right arm
CPT/HCPCS: 99281

== ENCOUNTER 2019-01-26 23:10 | Emergency (ER) | payer SELFPAY ==
[~2019-01-26] VITALS: Ht 182 cm; Wt 81.0 kg
[2019-01-26] MEDS ORDERED: DILTIAZEM IV FOR DRIP 125 MG in NS (IVPB) 100 ML IV SCH (23:30)
[2019-01-26] MEDS ORDERED: DILTIAZEM 25 MG/5 ML INJ (CARDIZEM) VIAL IVP ONE (23:30)
[2019-01-26 23:39] VITALS: BP 169/87
[2019-01-27] LABS: BASOPHILS % (AUTO) 0 % (0-10); EOSINOPHILS # (AUTO) 0.1 10^3/uL (0.0-0.3); EOSINOPHILS % (AUTO) 1 % (0-10); HEMATOCRIT 44 % (40-54); HEMOGLOBIN 15.5 G/DL (13.3-17.7); LYMPHOCYTES % (AUTO) 28 % (12-44); MEAN CORPUSCULAR HEMOGLOBIN 29 PG (25-34); MEAN CORPUSCULAR HGB CONC 35 G/DL (32-36); MEAN CORPUSCULAR VOLUME 82 FL (80-99); MEAN PLATELET VOLUME 11.9 FL (7.4-10.4); MONOCYTES # (AUTO) 1.1 X 10^3 (0.0-1.0); MONOCYTES % (AUTO) 10 % (0-12); NEUTROPHILS # (AUTO) 6.5 X 10^3 (1.8-7.8); NEUTROPHILS % (AUTO) 61 % (42-75); PLATELET COUNT 260 10^3/uL (130-400); RED CELL DISTRIBUTION WIDTH 14.7 % (10.0-14.5); WHITE BLOOD COUNT 10.6 10^3/uL (4.3-11.0)
[2019-01-27] MEDS ORDERED: HYDROcodone/APAP 5 MG/325 MG (LORTAB) TAB PO ONE
[2019-01-27 00:15] LABS: PROTHROMBIN TIME PATIENT 13.2 SEC (12.2-14.7)
[2019-01-27] MEDS ORDERED: APIXABAN 5 MG (ELIQUIS) TABLET PO ONE (00:15)
[2019-01-27] MEDS ORDERED: DILTIAZEM 240 MG (CARDIZEM CD) CAP PO ONE (00:15)
--- NOTE | 2019-01-27 00:19 | ED Cardiac General ---
History of Present Illness General Chief Complaint: Cardiac/General Problems Stated Complaint: HEART RATE, PAIN IN NECK AND SHOULDER Nursing Triage Note: Pt ambulates to RM 7 with c/o high heart rate. Pt states he wasn't feeling right and decided to check his HR. HR is 144 on arrival, with A Fib rhythym. Pt denies any chest pain at this time. Source: patient Exam Limitations: no limitations History of Present Illness Date Seen by Provider: Jan 26, 2019 Time Seen by Provider: 23:14 Initial Comments This 53-year-old man presents to the emergency room with complaints of tachycardia, ill feeling, and pain in the left neck and upper chest. He reports not feeling well for a few weeks now. Tonight he noticed his heart rate was high and he checked his heart rate on someone's phone. He reports this was read in the 160s so he decided to present to the emergency room. He reports having history of Graves' disease. He has not followed up as directed for treatment of his medical problems and has not taken his medications for 4 months. He last saw Ivan Mcconnell at [facility] for primary care and another provider at [place] for his thyroid problems. He reports the pain in his neck seems to be exacerbation of chronic pain due to bulging disks Allergies and Home Medications Allergies Coded Allergies: No Known Drug Allergies (Unverified , 09/09/17) Home Medications Amlodipine Besylate 5 Mg Tablet, 5 MG PO DAILY Prescribed by: MÓNICA SANZ on 12/12/172338 Hydrocodone Bit/Acetaminophen 1 Tab Tab, 1 EACH PO Q6H PRN for BREAKTHROUGH PAIN Prescribed by: GWEN WHALEY on 09/09/172010 Hydrocodone Bit/Acetaminophen 1 Tab Tab, 1 EACH PO Q4-6HR PRN for PAIN-MODERATE Prescribed by: MÓNICA SANZ on 12/12/17 233 Methocarbamol 500 Mg Tablet, 500 MG PO QID Prescribed by: COSMO CORDERO on 09/23/17 173 Methylprednisolone 4 Mg Tab.ds.pk, 4 MG PO UD Prescribed by: COSMO CORDERO on 09/23/17 173 Promethazine HCl 25 Mg Tablet, 25 MG PO Q8H PRN for NAUSEA/VOMITING Prescribed by: MÓNICA SANZ on 09/27/17 1104 Patient Home Medication List Home Medication List Reviewed: Yes Review of Systems Review of Systems Constitutional: no symptoms reported, see HPI EENTM: No Symptoms Reported Respiratory: No Symptoms Reported Cardiovascular: See HPI Gastrointestinal: No Symptoms Reported Genitourinary: No Symptoms Reported Musculoskeletal: see HPI Skin: no symptoms reported Psychiatric/Neurological: No Symptoms Reported Endocrine: No Symptoms Reported Hematologic/Lymphatic: No Symptoms Reported Past Ukkekxk-Lntylp-Erthlf Hx Past Med/Social Hx: Reviewed Nursing Past Med/Soc Hx Patient Social History Alcohol Use: Denies Use Recreational Drug Use: No Type Used: Cigarettes 2nd Hand Smoke Exposure: Yes Recent Foreign Travel: No Contact w/Someone Who Travel: No Recent Infectious Disease Expo: No Recent Hopitalizations: No Physical Abuse: No Sexual Abuse: No Mistreated: No Fear: No Past Medical History Surgeries: No Respiratory: No Cardiac: Yes Hypertension Neurological: No Genitourinary: No Gastrointestinal: No Musculoskeletal: Yes (CHRONIC NECK PAIN from cervical disc disease) Degenerate Disk Disease, Chronic Back Pain Endocrine: Yes Hyperthyroidism, Hypothyroidsim HEENT: No Cancer: No Psychosocial: No Integumentary: No Blood Disorders: No Physical Exam Vital Signs Vital Signs - First Documented 01/26/19 23:19 Temp 36.8 Pulse 144 Resp 22 B/P (MAP) 169/87 (114) Pulse Ox 99 O2 Delivery Room Air Capillary Refill : Less Than 3 Seconds Height, Weight, BMI Height: 5'11.00" Weight: 190lbs. oz. 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 II-XII Norm as Tested Skin: Normal Color, Warm/Dry Progress/Results/Core Measures Results/Orders Lab Results Laboratory Tests Test 01/26/19 23:28 Range/Units White Blood Count 10.6 4.3-11.0 10^3/uL Red Blood Count 5.40 4.35-5.85 10^6/uL Hemoglobin 15.5 13.3-17.7 G/DL Hematocrit 44 40-54 % Mean Corpuscular Volume 82 80-99 FL Mean Corpuscular Hemoglobin 29 25-34 PG Mean Corpuscular Hemoglobin Concent 35 32-36 G/DL Red Cell Distribution Width 14.7 H 10.0-14.5 % Platelet Count 260 130-400 10^3/uL Mean Platelet Volume 11.9 H 7.4-10.4 FL Neutrophils (%) (Auto) 61 42-75 % Lymphocytes (%) (Auto) 28 12-44 % Monocytes (%) (Auto) 10 0-12 % Eosinophils (%) (Auto) 1 0-10 % Basophils (%) (Auto) 0 0-10 % Neutrophils # (Auto) 6.5 1.8-7.8 X 10^3 Lymphocytes # (Auto) 3.0 1.0-4.0 X 10^3 Monocytes # (Auto) 1.1 H 0.0-1.0 X 10^3 Eosinophils # (Auto) 0.1 0.0-0.3 10^3/uL Basophils # (Auto) 0.0 0.0-0.1 10^3/uL Prothrombin Time 13.2 12.2-14.7 SEC INR Comment 1.0 0.8-1.4 Activated Partial Thromboplast Time 35 24-35 SEC Sodium Level 145 135-145 MMOL/L Potassium Level 3.8 3.6-5.0 MMOL/L Chloride Level 111 H 98-107 MMOL/L Carbon Dioxide Level 20 L 21-32 MMOL/L Anion Gap 14 5-14 MMOL/L Blood Urea Nitrogen 11 7-18 MG/DL Creatinine 0.95 0.60-1.30 MG/DL Estimat Glomerular Filtration Rate > 60 BUN/Creatinine Ratio 12 Glucose Level 93 70-105 MG/DL Calcium Level 9.3 8.5-10.1 MG/DL Corrected Calcium 9.4 8.5-10.1 MG/DL Magnesium Level 1.7 1.6-2.4 MG/DL Total Bilirubin 0.2 0.1-1.0 MG/DL Aspartate Amino Transf (AST/SGOT) 19 5-34 U/L Alanine Aminotransferase (ALT/SGPT) 14 0-55 U/L Alkaline Phosphatase 139 H 40-136 U/L Myoglobin 28.4 10.0-92.0 NG/ML Troponin I < 0.028 <0.028 NG/ML Total Protein 7.1 6.4-8.2 GM/DL Albumin 3.9 3.2-4.5 GM/DL Thyroid Stimulating Hormone (TSH) 0.00 L 0.35-4.94 UIU/ML Free Thyroxine 1.77 H 0.70-1.48 NG/DL My Orders Orders - RM HOFFMAN MD Cbc With Automated Diff (01/26/19:24) Magnesium (01/26/19:) Chest 1 View, Ap/Pa Only (01/26/19:24) Ekg Tracing (01/26/19:24) Cardiac Profile 1 (01/26/19:) Comprehensive Metabolic Panel (01/26/19) Myoglobin Serum (01/26/19) Protime With Inr (01/26/19:) Partial Thromboplastin Time (01/26/19:) O2 (01/26/19:) Monitor-Rhythm Ecg Trace Only (01/26/19:) Ed Iv/Invasive Line Start (01/26/19:24) Thyroid Stimulating Hormone (01/26/19:24) Free T4 (Free Thyroxine) (01/26/19:24) Diltiazem Injection (Cardizem Injection) (01/26/19 23:30) Ns (Ivpb) (Sodium C... W/Diltiazem Iv Fo (01/26/19 23:30) Hydrocodone/Apap 5/325 Tablet (Lortab 5 (01/27/19 00:00) Diltiazem Cd 24 Hr Capsule (Cardizem Cd (01/27/19 00:15) Apixaban Tablet (Eliquis Tablet) (01/27/19 00:15) Medications Given in ED Current Medications Medications Dose Ordered Sig/Allison Route Start Time Stop Time Status Last Admin Dose Admin Acetaminophen/ Hydrocodone Bitart 1 tab ONCE ONCE PO 01/27/19 00:00 01/27/19 00:01 DC 01/27/19 00:02 1 TAB Apixaban 5 mg ONCE ONCE PO 01/27/19 00:15 01/27/19 00:17 DC 01/27/19 00:30 5 MG Diltiazem HCl 10 mg ONCE ONCE IVP 01/26/19 23:30 01/26/19 23:31 DC 01/26/19 23:33 10 MG Diltiazem HCl 240 mg ONCE ONCE PO 01/27/19 00:15 01/27/19 00:17 DC 01/27/19 00:30 240 MG Vital Signs/I&O 01/26/19 01/26/19 23:19 23:39 Temp 36.8 36.59938 Pulse 144 144 Resp 22 22 B/P (MAP) 169/87 (114) 169/87 Pulse Ox 99 99 O2 Delivery Room Air Room Air Blood Pressure Mean: 114 POS Progress Progress Note : Progress Note Patient was found to be in atrial fibrillation with RVR. He was started on a Cardizem drip with a Cardizem bolus. During his workup patient made clear his intentions to leave the ER and refused admission. He was discouraged from leaving the hospital. I made it clear to him 3 separate times that leaving the hospital before treatment is complete could result in , heart failure, str arleth with severe disability, or other serious consequences. Despite my assertions, patient elected to leave AGAINST MEDICAL ADVICE. He was given Eliquis 5 mg and Cardizem cd 250 mg prior to leaving AGAINST MEDICAL ADVICE. Initial ECG Impression Date: Jan 26, 2019 Initial ECG Impression Time: 23:28 Initial ECG Rate: 142 Initial ECG Rhythm: A Fib/Flutter Initial ECG Impression: Atrial Fibrillation w/RVR Comment Atrial fibrillation with RVR. No acute ST elevation or depression to suggest ischemia. Diagnostic Imaging Diagonstic Imaging: Xray Plain Films/CT/US/NM/MRI: chest Comments Chest x-ray viewed by me and report reviewed. See report below: NAME: CATALINA STERN [facility] REC#: [id number] PT STATUS: DEP ER : [id number] PHYSICIAN: RM HOFFMAN MD ADMIT DATE: 01/26/19/ER Draft Date of Exam:01/26/19 CHEST 1 VIEW, AP/PA ONLY INDICATION: Tachycardia COMPARISON: 09/09/2017 FINDINGS: Single frontal view of the chest demonstrates normal heart size and pulmonary vascularity. The lungs are well aerated and clear. No large pleural effusion or pneumothorax is seen. The visualized osseous structures show no acute abnormalities. IMPRESSION: 1. No acute cardiopulmonary process. Dictated on workstation # [id number] Dict: 01/27/19 0538 Trans: 01/27/19 0541 [facility] [id number] Interpreted by: CHARLOTTE MCCAULEY MD Departure Impression Primary Impression: Atrial fibrillation with RVR Additional Impressions: Thyroid dysfunction Chronic neck pain Disposition: AGAINST MEDICAL ADVICE Condition: Against Medical Advice Departure-Patient Inst. Referrals: BLANCA THAYER MD (PCP) Primary Care Physician INES MCCONNELL (Family) Primary Care Physician Patient Instructions: Atrial Fibrillation Add. Discharge Instructions: You are leaving the hospital AGAINST MEDICAL ADVICE with potentially life- threatening conditions and conditions that could cause significant permanent disability. Please follow-up with your primary care provider or return to the hospital as soon as possible if you change your mind regarding treatment. All discharge instructions reviewed with patient and/or family. Voiced understanding. Copy Copies To 1: CARMEN GRAF JOSHUA T MD Jan 27, 2019 00:19 POS
[2019-01-27 00:23] LABS: ALANINE AMINOTRANSFERASE 14 U/L (0-55); ALBUMIN 3.9 GM/DL (3.2-4.5); ALKALINE PHOSPHATASE 139 U/L (40-136); BILIRUBIN,TOTAL 0.2 MG/DL (0.1-1.0); BUN/CREATININE RATIO 12; CALCIUM 9.3 MG/DL (8.5-10.1); CARBON DIOXIDE 20 MMOL/L (21-32); CHLORIDE 111 MMOL/L (98-107); CREATININE SERUM 0.95 MG/DL (0.60-1.30); GFR ESTIMATED > 60; GLUCOSE 93 MG/DL (70-105); MAGNESIUM 1.7 MG/DL (1.6-2.4); POTASSIUM 3.8 MMOL/L (3.6-5.0); SODIUM 145 MMOL/L (135-145); TOTAL PROTEIN 7.1 GM/DL (6.4-8.2)
[2019-01-27 00:44] LABS: FREE T4 (FREE THYROXINE) 1.77 NG/DL (0.70-1.48)
--- NOTE | 2019-01-27 05:41 | Diagnostic Imaging Report ---
INDICATION: Tachycardia COMPARISON: 09/09/2017 FINDINGS: Single frontal view of the chest demonstrates normal heart size and pulmonary vascularity. The lungs are well aerated and clear. No large pleural effusion or pneumothorax is seen. The visualized osseous structures show no acute abnormalities. IMPRESSION: 1. No acute cardiopulmonary process. Dictated by: Dictated on workstation # [id number]
== END 2019-01-27 00:33 | disposition left against medical advice (07) ==
LOC: EDUNIT# 23:10 → ER 23:13
DX: I48.91 Unspecified atrial fibrillation (principal); E05.00 Thyrotoxicosis with diffuse goiter without thyrotoxic crisis or storm; M54.2 Cervicalgia; G89.29 Other chronic pain; I10 Essential (primary) hypertension; E03.9 Hypothyroidism, unspecified; Z77.22 Contact with and (suspected) exposure to environmental tobacco smoke (acute) (chronic)
CPT/HCPCS: 36415; 71045; 80053; 83735; 83874; 84439; 84443; 84484; 85025; 85610; 85730; 93005; 93041

== ENCOUNTER → 2020-05-12 | Outpatient (CLI) | payer SELFPAY ==
[~2020-05-12] MED LIST changes: +AMLO-250 PO; -AMLO5TAB9 PO
[2020-05-12 10:20] LABS: BUN/CREATININE RATIO 5; CALCIUM 6.5 MG/DL (8.5-10.1); CARBON DIOXIDE 21 MMOL/L (21-32); CHLORIDE 108 MMOL/L (98-107); CREATININE SERUM 1.08 MG/DL (0.60-1.30); GFR ESTIMATED > 60; GLUCOSE 116 MG/DL (70-105); POTASSIUM 3.8 MMOL/L (3.6-5.0); SODIUM 140 MMOL/L (135-145)
== END ==
LOC: LAB 09:40
PROVIDERS: ATTEND Internal Medicine Endocrinology, Diabetes & Metabolism
DX: E83.51 Hypocalcemia (principal)
CPT/HCPCS: 36415; 80048

== ENCOUNTER → 2020-06-10 | Outpatient (CLI) | payer BC ==
[2020-06-10 09:12] LABS: BUN/CREATININE RATIO 10; CALCIUM 7.3 MG/DL (8.5-10.1); CARBON DIOXIDE 23 MMOL/L (21-32); CHLORIDE 108 MMOL/L (98-107); CREATININE SERUM 0.98 MG/DL (0.60-1.30); GFR ESTIMATED > 60; GLUCOSE 68 MG/DL (70-105); POTASSIUM 3.7 MMOL/L (3.6-5.0); SODIUM 142 MMOL/L (135-145)
[2020-06-11 11:31] LABS: FREE T4 (FREE THYROXINE) 0.68 NG/DL (0.70-1.48)
== END ==
LOC: LAB 08:25
PROVIDERS: ATTEND Internal Medicine Endocrinology, Diabetes & Metabolism
DX: E83.51 Hypocalcemia (principal)
CPT/HCPCS: 36415; 80048; 84439; 84443

== ENCOUNTER 2022-12-23 18:34 | Emergency (ER) | payer OTHER ==
[~2022-12-23] VITALS: Ht 180 cm; Wt 91.6 kg
--- NOTE | 2022-12-23 19:26 | ED Back Pain ---
General Chief Complaint: Back Problems Stated Complaint: BACK PAIN, JOINT PAIN, PAIN RADIATING NECK TO FING Nursing Triage Note: PT PRESENTS TO ED VIA POV FROM HOME WITH COMPLAINTS OF NECK, BACK, AND JOINT PAIN OVER SEVERAL DAYS. Source of Information: Patient Exam Limitations: No Limitations History of Present Illness Date Seen by Provider: Dec 23, 2022 Time Seen by Provider: 19:14 Initial Comments 57-year-old male presents to the ER with multiple complaints. He reports chronic neck pain and lower back pain. He states that he was supposed to get surgery on the disks in his neck, but never did. He states the pain in his lower back is bilateral lower pain. He denies recent back injury. Denies paresthesia. Denies bowel or bladder incontinence. He pain where his legs meet his lower abdomen on bilateral sides. Denies testicle pain. He states that the last couple days he was having abdominal pain, denies any abdominal pain today. Denies nausea, vomiting, diarrhea, dysuria. Last bowel movement was today. Past medical history includes hypertension and thyroidectomy. He is supposed to be taking blood pressure medications and thyroid medications. He was seen at [facility] recently and had his thyroid checked and other labs drawn. He just picked up his thyroid medication today. He was told that his labs revealed kidney damage. Allergies and Home Medications Allergies Coded Allergies: No Known Drug Allergies (Unverified , 09/09/17) Patient Home Medication List Home Medication List Reviewed: Yes Amlodipine Besylate (Amlodipine Besylate) 5 Mg Tablet, 5 MG PO DAILY Prescribed by: MÓNICA SANZ on 12/12/172338 Hydrocodone Bit/Acetaminophen (Lortab 5 Mg Tablet) 1 Tab Tab, 1 EACH PO Q6H PRN for BREAKTHROUGH PAIN Prescribed by: GWEN WHALEY on 09/09/172010 Hydrocodone Bit/Acetaminophen (Lortab 5 Mg Tablet) 1 Tab Tab, 1 EACH PO Q4-6HR PRN for PAIN-MODERATE Prescribed by: MÓNICA SANZ on 12/12/172338 Hydrocodone/Acetaminophen (Hydrocodone-Acetamin 5-325 mg) 5 Mg-325 Mg Tablet, 1 TAB PO Q4H PRN for PAIN-MODERATE (5-7) Prescribed by: Cielo Madison on 12/23/222118 Methocarbamol (Robaxin) 500 Mg Tablet, 500 MG PO QID Prescribed by: COSMO CORDERO on 09/23/17 173 Methylprednisolone (Medrol) 4 Mg Tab.ds.pk, 4 MG PO UD Prescribed by: COSMO CORDERO on 09/23/17 173 Promethazine HCl (Promethazine Tablet) 25 Mg Tablet, 25 MG PO Q8H PRN for NAUSEA/VOMITING Prescribed by: MÓNICA SANZ on 09/27/17 1104 Review of Systems Constitutional: see HPI Past Wtmljrf-Kvuuaf-Qxgzeg Hx Patient Social History Tobacco Use?: Yes Tobacco type used: Cigarettes Smoking Status: Current Everyday Smoker Substance use?: No Alcohol Use?: Yes Alcohol Frequency: Once in a while Pt feels they are or have been: No Past Medical History Surgery/Hospitalization HX: PMH: OSTEOARTHRITIS, DDD, HTN, KIDNEY ISSUES Surgeries: No Respiratory: No Cardiac: Yes Hypertension Neurological: No Genitourinary: No Gastrointestinal: No Musculoskeletal: Yes (CHRONIC NECK PAIN from cervical disc disease) Degenerate Disk Disease, Chronic Back Pain Endocrine: Yes Hyperthyroidism, Hypothyroidsim HEENT: No Cancer: No Psychosocial: No Integumentary: No Blood Disorders: No Physical Exam Vital Signs Vital Signs - First Documented 12/23/22 18:49 Temp 36.4 Pulse 62 Resp 20 B/P (MAP) 165/103 (123) Pulse Ox 95 Capillary Refill : Less Than 3 Seconds Height, Weight, BMI Height: 5'11.00" Weight: 190lbs. oz. 86.164019cr; 28.00 BMI Method:Stated General Appearance: No Apparent Distress, WD/WN Neck: Supple; No Tender Lateral; Tender Midline Cardiovascular: Regular Rate, Rhythm Respiratory: Lungs Clear, Normal Breath Sounds, No Accessory Muscle Use, No Respiratory Distress Gastrointestinal: No Hernia Back: Vertebral Tenderness Extremity: Normal Inspection, Normal Range of Motion Neurologic/Psychiatric: Alert, Normal Mood/Affect Skin: Normal Color, Warm/Dry Progress/Results/Core Measures Results/Orders Lab Results Laboratory Tests Test 12/23/22 19:33 12/23/22 20:43 Range/Units White Blood Count 5.2 4.3-11.0 10^3/uL Red Blood Count 4.45 4.30-5.52 10^6/uL Hemoglobin 13.8 13.3-17.7 g/dL Hematocrit 41 40-54 % Mean Corpuscular Volume 92 80-99 fL Mean Corpuscular Hemoglobin 31 25-34 pg Mean Corpuscular Hemoglobin Concent 34 32-36 g/dL Red Cell Distribution Width 14.6 H 10.0-14.5 % Platelet Count 212 130-400 10^3/uL Mean Platelet Volume 11.0 9.0-12.2 fL Immature Granulocyte % (Auto) 0 % Neutrophils (%) (Auto) 46 42-75 % Lymphocytes (%) (Auto) 46 H 12-44 % Monocytes (%) (Auto) 4 0-12 % Eosinophils (%) (Auto) 2 0-10 % Basophils (%) (Auto) 1 0-10 % Neutrophils # (Auto) 2.4 1.8-7.8 10^3/uL Lymphocytes # (Auto) 2.4 1.0-4.0 10^3/uL Monocytes # (Auto) 0.2 0.0-1.0 10^3/uL Eosinophils # (Auto) 0.1 0.0-0.3 10^3/uL Basophils # (Auto) 0.1 0.0-0.1 10^3/uL Immature Granulocyte # (Auto) 0.0 0.0-0.1 10^3/uL Sodium Level 144 135-145 MMOL/L Potassium Level 3.4 L 3.6-5.0 MMOL/L Chloride Level 110 H 98-107 MMOL/L Carbon Dioxide Level 20 L 21-32 MMOL/L Anion Gap 14 5-14 MMOL/L Blood Urea Nitrogen 11 7-18 MG/DL Creatinine 1.55 H 0.60-1.30 MG/DL Estimat Glomerular Filtration Rate 53 BUN/Creatinine Ratio 7 Glucose Level 90 70-105 MG/DL Calcium Level 7.2 L 8.5-10.1 MG/DL Corrected Calcium 7.4 L 8.5-10.1 MG/DL Total Bilirubin 0.1 0.1-1.0 MG/DL Aspartate Amino Transf (AST/SGOT) 25 5-34 U/L Alanine Aminotransferase (ALT/SGPT) 9 0-55 U/L Alkaline Phosphatase 44 40-136 U/L Total Protein 7.0 6.4-8.2 GM/DL Albumin 3.8 3.2-4.5 GM/DL Urine Color YELLOW Urine Clarity CLEAR Urine pH 5.5 5-9 Urine Specific [place] >=1.030 1.016-1.022 Urine Protein 2+ H NEGATIVE Urine Glucose (UA) NEGATIVE NEGATIVE Urine Ketones NEGATIVE NEGATIVE Urine Nitrite NEGATIVE NEGATIVE Urine Bilirubin NEGATIVE NEGATIVE Urine Urobilinogen 1.0 < = 1.0 MG/DL Urine Leukocyte Esterase NEGATIVE NEGATIVE Urine RBC (Auto) NEGATIVE NEGATIVE Urine RBC NONE /HPF Urine WBC 2-5 /HPF Urine Squamous Epithelial Cells 2-5 /HPF Urine Crystals NONE /LPF Urine Bacteria TRACE /HPF Urine Casts PRESENT /LPF Urine Hyaline Casts RARE /LPF Urine Mucus SMALL H /LPF Urine Culture Indicated NO My Orders Orders - CIELO VALENZUELA APRN Cbc And Automated Diff (12/23/22 19:22) Comprehensive Metabolic Panel (12/23/22 19:22) Ua Culture If Indicated (12/23/22 19:22) Sacrum And Coccyx (12/23/22 19:22) Orphenadrine Inj (Ed Only) (Orphenadrine (12/23/22 19:30) Ct Cervical Spine Wo (12/23/22 19:22) Ct Thoracic/Lumbar Spine Wo (12/23/22 ) Ed Iv/Invasive Line Start (12/23/22 20:01) Ns Iv 1000 Ml (Ns Iv 1000 Ml) (12/23/22 20:15) Medications Given in ED Current Medications Medications Dose Ordered Sig/Allison Route Start Time Stop Time Status Last Admin Dose Admin Orphenadrine Citrate 60 mg ONCE ONCE IV 12/23/22 19:30 12/23/22 19:31 DC 12/23/22 19:38 60 MG Vital Signs/I&O 12/23/22 18:49 Temp 36.4 Pulse 62 Resp 20 B/P (MAP) 165/103 (123) Pulse Ox 95 Blood Pressure Mean: 123 Progress Progress Note : Progress Note Patient seen and evaluated, resting comfortably in bed, no acute distress. Based on exam and symptoms, work-up initiated including CBC, CMP, UA, CT C- spine, thoracic spine, lumbar spine, coccyx and sacrum x-ray. Norflex ordered. 2115 Labs and imaging reviewed. CBC grossly normal. CMP shows slight decreased potassium 3.4, elevated chloride 110, decreased CO2 20, BUN 11, creatinine 1.55, GFR 53. Calcium decreased 7.2. 1 L of IV fluids ordered for decreased kidney function. Other labs suggest possible dehydration as a cause. Urinalysis shows greater than the 1.030 urine specific gravity, 2+ protein. Sacrum and coccyx x-ray shows no acute abnormality. Cervical CT shows degenerative changes and progression of disc disease at C6-C7. There is moderate to severe disc space narrowing at C6-C7 with Schmorl's nodes and endplate irregularity. No fracture or subluxation or acute bony abnormality. Lumbar and thoracic CT shows chronic changes including degenerative changes. Mild disc bulging at L4-L5 and L5-S1. No acute fracture, subluxation, or acute appearing process. There are also Schmorl's nodes at multiple levels. Results discussed with patient. Patient instructed to follow-up with [facility] to establish a primary care provider. He will need to have his kidney function reevaluated to determine if this is acute or chronic. Patient was recently restarted on his blood pressure and thyroid medication. Patient instructed to continue taking these. Will discharge with prescription for hydrocodone. Patient stable for discharge. Discharge instructions and return precautions provided. Diagnostic Imaging Diagonstic Imaging: Xray Plain Films/CT/US/NM/MRI: other (sacrum and coccyx) Comments [facility] [place] [place] NAME: CATALINA STERN [facility] REC#: [id number] PT STATUS: REG ER : 1965 PHYSICIAN: CIELO VALENZUELA APRN ADMIT DATE: 12/23/22/ER Signed Date of Exam:12/23/22 SACRUM AND COCCYX Indication: Sacral pain, history of trauma. AP and lateral views of the sacrum and coccyx are obtained. SI joints appear unremarkable. The sacral foramina appear normal. There is no fracture or acute bone abnormality. Impression: Negative sacrum and coccyx. Dictated by: Dictated on workstation # [id number] Dict: 12/23/222012 Trans: 12/23/222033 [facility] [id number] Interpreted by: VENICE BLANCAS MD Electronically signed by: VENICE BLANCAS MD 12/23/222033 Diagonstic Imaging: CT Plain Films/CT/US/NM/MRI: c-spine Comments [facility] [place], [place] NAME: CATALINA STERN [facility] REC#: [id number] PT STATUS: REG ER : 1965 PHYSICIAN: CIELO VALENZUELA APRN ADMIT DATE: 12/23/22/ER Signed Date of Exam:12/23/22 CT CERVICAL SPINE WO INDICATION: History of trauma, neck pain. TECHNIQUE: Multiple contiguous axial images were obtained through the cervical spine without the use of intravenous contrast. Sagittal and coronal reformations were then performed. Auto Exposure Controls were utilized during the CT exam to meet ALARA standards for radiation dose reduction. CT cervical spine is compared with prior study 09/09/2017. There was no evidence of cervical spine fracture. There is no subluxation or malalignment. There is mild disc space narrowing throughout the cervical spine with mild osteophyte formation. There is moderate to severe disc space narrowing at C6-C7 with Schmorl's nodes and endplate irregularity. There is mild diffuse facet degenerative change. IMPRESSION: Degenerative changes in cervical spine are present as described above, with some progression of disc disease at C6-C7. No acute fracture or subluxation or acute bony abnormality. Dictated by: Dictated on workstation # [id number] Dict: 12/23/222005 Trans: 12/23/222033 [facility] [id number] Interpreted by: VENICE BLANCAS MD Electronically signed by: VENICE BLANCAS MD 12/23/222033 Diagonstic Imaging: CT Plain Films/CT/US/NM/MRI: other (thoracic and lumbar spine) Comments [facility] [place] [place] NAME: CATALINA STERN [facility] REC#: [id number] PT STATUS: REG ER : 1965 PHYSICIAN: CIELO VALENZUELA APRN ADMIT DATE: 12/23/22/ER Signed Date of Exam:12/23/22 CT THORACIC/LUMBAR SPINE WO INDICATION: Back pain, history of trauma. TECHNIQUE: Multiple contiguous axial images were obtained through the thoracic and lumbar spine without the use of intravenous contrast. Sagittal and coronal reformations were then performed. All CT scans use one or more of the following dose optimizing techniques: automated exposure control, MA and/or KvP adjustment based on a patient size and exam type, or iterative reconstruction. There is no previous CT of the thoracic spine or lumbar spine for comparison. The thoracic and lumbar vertebrae are normal in height. In the thoracic region, there are mild diffuse degenerative change with Schmorl's nodes at multiple levels. There is no compression deformity or acute fracture or overt canal narrowing. In the lumbar region, there is no compression deformity or subluxation or acute fracture. The disc spaces are normal in height. There is prominent facet joint degenerative change at L4-L5 and L5-S1. There is mild disc bulging at L4-L5 and L5-S1. IMPRESSION: Chronic changes in the thoracic and lumbar spine as described above with no acute fracture or subluxation or acute appearing process. Dictated by: Dictated on workstation # [id number] Dict: 12/23/222008 Trans: 12/23/222033 [facility] [id number] Interpreted by: VENICE BLANCAS MD Electronically signed by: VENICE BLANCAS MD 12/23/222033 Departure Impression Primary Impression: Osteoarthritis Additional Impression: Kidney disease Disposition: 01 HOME, SELF-CARE Condition: Stable Departure-Patient Inst. Decision time for Depature: 21:16 Referrals: [facility] (PCP/Family) Primary Care Physician Patient Instructions: Osteoarthritis Add. Discharge Instructions: Follow-up with the [facility], you need to establish a primary care provider. Your kidney function was decreased, this can be caused by dehydration, but it can also be caused by uncontrolled hypertension. You need to follow-up with a primary care provider to monitor your kidney function to determine if this is acute or chronic. Continue taking your blood pressure and thyroid medications as prescribed. Take hydrocodone as needed for pain. Only take when needed because it can cause constipation. It can also make you sleepy. Return for inability to walk, numbness or tingling in your inner thighs or g roin, bowel or bladder incontinence, or any other new, concerning, or worsening symptoms. All discharge instructions reviewed with patient and/or family. Voiced understanding. Scripts Hydrocodone/Acetaminophen (Hydrocodone-Acetamin 5-325 mg) 5 Mg-325 Mg Tablet 1 TAB PO Q4H PRN for PAIN-MODERATE (5-7), #15 TAB 0 Refills Prov: CIELO VALENZUELA APRN 12/23/22 CIELO VALENZUELA APRN Dec 23, 2022 19:26
[2022-12-23] MEDS ORDERED: ORPHENADRINE 60 MG/2 ML AMP (ED ONLY) IV ONE (19:30)
[2022-12-23 19:45] LABS: BASOPHILS # (AUTO) 0.1 10^3/uL (0.0-0.1); BASOPHILS % (AUTO) 1 % (0-10); EOSINOPHILS # (AUTO) 0.1 10^3/uL (0.0-0.3); EOSINOPHILS % (AUTO) 2 % (0-10); HEMATOCRIT 41 % (40-54); HEMOGLOBIN 13.8 g/dL (13.3-17.7); LYMPHOCYTES # (AUTO) 2.4 10^3/uL (1.0-4.0); LYMPHOCYTES % (AUTO) 46 % (12-44); MEAN CORPUSCULAR HEMOGLOBIN 31 pg (25-34); MEAN CORPUSCULAR HGB CONC 34 g/dL (32-36); MEAN CORPUSCULAR VOLUME 92 fL (80-99); MONOCYTES # (AUTO) 0.2 10^3/uL (0.0-1.0); MONOCYTES % (AUTO) 4 % (0-12); NEUTROPHILS # (AUTO) 2.4 10^3/uL (1.8-7.8); NEUTROPHILS % (AUTO) 46 % (42-75); PLATELET COUNT 212 10^3/uL (130-400); WHITE BLOOD COUNT 5.2 10^3/uL (4.3-11.0)
[2022-12-23 19:52] LABS: ALBUMIN 3.8 GM/DL (3.2-4.5); POTASSIUM 3.4 MMOL/L (3.6-5.0)
[2022-12-23 19:53] LABS: CALCIUM 7.2 MG/DL (8.5-10.1)
[2022-12-23 19:56] LABS: BILIRUBIN,TOTAL 0.1 MG/DL (0.1-1.0)
[2022-12-23 19:58] LABS: CREATININE SERUM 1.55 MG/DL (0.60-1.30)
[2022-12-23] MEDS ORDERED: NS IV 1000 ML 1,000 ML IV SCH (20:15)
--- NOTE | 2022-12-23 20:16 | Diagnostic Imaging Report ---
Indication: Sacral pain, history of trauma. AP and lateral views of the sacrum and coccyx are obtained. SI joints appear unremarkable. The sacral foramina appear normal. There is no fracture or acute bone abnormality. Impression: Negative sacrum and coccyx. Dictated by: Dictated on workstation # [id number]
--- NOTE | 2022-12-23 20:17 | Diagnostic Imaging Report ---
INDICATION: History of trauma, neck pain. TECHNIQUE: Multiple contiguous axial images were obtained through the cervical spine without the use of intravenous contrast. Sagittal and coronal reformations were then performed. Auto Exposure Controls were utilized during the CT exam to meet ALARA standards for radiation dose reduction. CT cervical spine is compared with prior study 09/09/2017. There was no evidence of cervical spine fracture. There is no subluxation or malalignment. There is mild disc space narrowing throughout the cervical spine with mild osteophyte formation. There is moderate to severe disc space narrowing at C6-C7 with Schmorl's nodes and endplate irregularity. There is mild diffuse facet degenerative change. IMPRESSION: Degenerative changes in cervical spine are present as described above, with some progression of disc disease at C6-C7. No acute fracture or subluxation or acute bony abnormality. Dictated by: Dictated on workstation # [id number]
--- NOTE | 2022-12-23 20:18 | Diagnostic Imaging Report ---
INDICATION: Back pain, history of trauma. TECHNIQUE: Multiple contiguous axial images were obtained through the thoracic and lumbar spine without the use of intravenous contrast. Sagittal and coronal reformations were then performed. All CT scans use one or more of the following dose optimizing techniques: automated exposure control, MA and/or KvP adjustment based on a patient size and exam type, or iterative reconstruction. There is no previous CT of the thoracic spine or lumbar spine for comparison. The thoracic and lumbar vertebrae are normal in height. In the thoracic region, there are mild diffuse degenerative change with Schmorl's nodes at multiple levels. There is no compression deformity or acute fracture or overt canal narrowing. In the lumbar region, there is no compression deformity or subluxation or acute fracture. The disc spaces are normal in height. There is prominent facet joint degenerative change at L4-L5 and L5-S1. There is mild disc bulging at L4-L5 and L5-S1. IMPRESSION: Chronic changes in the thoracic and lumbar spine as described above with no acute fracture or subluxation or acute appearing process. Dictated by: Dictated on workstation # [id number]
[2022-12-23 21:07] LABS: CLARITY,URINE CLEAR; COLOR,URINE YELLOW; PH,URINE 5.5 (5-9)
[2022-12-23 21:08] LABS: BACTERIA,URINE TRACE /HPF; BILIRUBIN,URINE NEGATIVE (NEGATIVE); GLUCOSE, URINE (UA) NEGATIVE (NEGATIVE); HYALINE CASTS, URINE RARE /LPF; KETONES,URINE NEGATIVE (NEGATIVE); LEUKOCYTE ESTERASE ,URINE NEGATIVE (NEGATIVE); NITRITE,URINE NEGATIVE (NEGATIVE); PROTEIN,URINE 2+ (NEGATIVE)
[2022-12-23] MEDS ORDERED: ACHD5005 PO (21:18)
[2022-12-23 21:26] VITALS: BP 164/101
== END 2022-12-23 21:26 | disposition home or self-care (01) ==
LOC: EDUNIT# 18:34 → ER 18:40
DX: M47.812 Spondylosis without myelopathy or radiculopathy, cervical region (principal); M47.816 Spondylosis without myelopathy or radiculopathy, lumbar region; I10 Essential (primary) hypertension; E05.90 Thyrotoxicosis, unspecified without thyrotoxic crisis or storm; E03.9 Hypothyroidism, unspecified; E87.8 Other disorders of electrolyte and fluid balance, not elsewhere classified; E83.51 Hypocalcemia; F17.210 Nicotine dependence, cigarettes, uncomplicated; Z79.899 Other long term (current) drug therapy; Z71.6 Tobacco abuse counseling
CPT/HCPCS: 36415; 72125; 72128; 72131; 72220; 80053; 81000; 85025